=== PATIENT | male | born 1965 | race Caucasian/White ===

== ENCOUNTER 2016-12-08 03:52 | Observation (INO) | payer BC ==
[2016-12-08] VITALS (8 sets, daily range): BP systolic 90–134; BP diastolic 58–68
[~2016-12-08] VITALS: Ht 182.9 cm; Wt 136.7 kg
[~2016-12-08 03:52] MED LIST: ASPI81TA85 PO; CIPR500T89 PO; COLA100C3 PO; FLOM5CAP PO; LISI-538 PO; OMEP20CA3 PO; OMEP40CA2 PO; PERC2.5T PO; PERC7.5T3 PO; PRED10TA PO; VALS320T3 PO
[2016-12-08 04:36] LABS: BASO # 0.1 K/mm3 (0.0-0.2); EOS # 0.2 K/mm3 (0.0-0.50); EOS % 2.5 % (0.0-3.0); LARGE UNSTAINED CELL # 0.1 K/mm3 (0.0-0.4); LARGE UNSTAINED CELL % 1.4 % (0.0-4.0); LYMPH % 31.7 % (24.0-44.0); MEAN CORPUSCULAR HEMOGLOBIN 29.3 pg (27.0-33.0); MEAN CORPUSCULAR VOLUME 88.9 fl (80.0-96.0); MONO # 0.5 K/mm3 (0.0-0.8); MONO % 5.2 % (0.0-5.0); NEUTROPHILS # 5.3 K/mm3 (1.8-7.7); NEUTROPHILS % 58.2 % (36.0-66.0); PLATELET COUNT, AUTOMATED 178 k/mm3 (150-450); RED CELL DISTRIBUTION WIDTH 12.5 % (11.5-14.5); WHITE BLOOD COUNT 9.1 K/mm3 (4.0-10.0)
[2016-12-08 04:42] LABS: INR 0.95
[2016-12-08 05:00] LABS: ANION GAP 6 MEQ/L (8-16); BLOOD UREA NITROGEN 21 MG/DL (7-18); CALCIUM LEVEL 8.9 MG/DL (8.5-10.1); CARBON DIOXIDE LEVEL 27 MEQ/L (21-32); CHLORIDE LEVEL 106 MEQ/L (98-107); CREATININE FOR GFR 1.28 MG/DL (0.70-1.30); GLOMERULAR FILTRATION RATE > 60.0 (>60); GLUCOSE, FASTING 98 MG/DL (70-105); POTASSIUM SERUM 3.6 MEQ/L (3.5-5.1); SODIUM LEVEL 139 MEQ/L (136-145)
--- NOTE | 2016-12-08 06:40 | REPUSA ---
CLINICAL HISTORY: Syncope. TECHNIQUE: Multiple axial brain CT scan sections were obtained from base to vertex without contrast a dministration. COMMENTS: The study shows normal configuration of sella turcica. There are no intra or extra-axial collections. There is no mass effect or midline shift. There is no evidence of hematoma formation. No hydrocephal us is present. No abnormal calcifications are noted. No significant abnormalities are seen either in the posterior fossa or supratentorial compartment. The sinuses and mastoid air cells are patent. IMPRESSION: No evidence of acute intracranial pathology. Thank you for your kind referral of this patient.
[2016-12-08] MEDS: ACETAMINOPHEN TAB 650MG DOSE (2X325MG) PO PRN (08:32)
[2016-12-08] MEDS ORDERED: ISOVUE-370 76% 100ML VIAL (Q9967) As Ordered ONE (08:36)
--- NOTE | 2016-12-08 09:32 | REP ---
CT abdomen pelvis with IV contrast: No bowel contrast is utilized. Comparison is 05/30/2016. On the comparison study there was an 8.7 mm left ureteral calculus and left hydronephrosis. On the study today in the left ureteral calculus is no longer present and there is no left hydronephrosis. On the comparison study. There are was a nonobstructive 2 mm left renal calculus in the lower pole. This not identified on the current study and may no longer be present or could be obscured by the IV contrast enhancement. On the comparison study there were three 2 mm right renal calculi, nonobstructive. These are not identified on the current study and may be no longer be present or could be obscured by the IV contrast enhancement. There is no hydronephrosis on the right on the left. There are no bladder calculi. There is a periumbilical fat containing midline ventral hernia with the peritoneal defect measuring 1.5 cm and the hernia sac measuring 6 cm. There is no bowel within the hernia. This is unchanged from the prior study. There are bilateral fat containing inguinal hernias. These are unchanged. The visualized lung sylvester are unremarkable. Cardiac size is normal. The hepatic parenchyma is homogeneous but diffusely less dense than the spleen compatible with hepato steatosis. This is unchanged. The gallbladder, pancreas, spleen, adrenals, abdominal aorta, bowel and mesentery are unchanged and unremarkable. Pelvis: The bladder is unremarkable. There is no adenopathy or ascites. The pelvic bowel loops are unremarkable except for a few diverticuli in the sigmoid colon. There is no CT evidence of diverticulitis. Impression: No renal or ureteral calculi are identified. There is no hydronephrosis. The previous nonobstructive renal calculi were very small and could be obscured by the IV contrast enhancement or may no longer be present. The previous left ureteral calculus is no longer identified. Hepato steatosis. Fat-containing periumbilical hernia, unchanged. Bilateral fat containing inguinal hernias, unchanged. Occasional diverticula in the sigmoid colon without diverticulitis. Signed by Evelio Flood MD 12/08/2016 09:24 A
[2016-12-08] MEDS: SENOKOT S TAB PO SCH ×2 (10:50→21:16)
[2016-12-08] MEDS: OMEPRAZOLE 20 MG CAP PO SCH ×2 (10:50→21:16)
[2016-12-08] MEDS: ENOXAPARIN 40 MG/0.4 ML SYRINGE (J1650) SC SCH (10:50)
[2016-12-08] MEDS: TAMSULOSIN 0.4 MG CAP PO SCH (11:37)
--- NOTE | 2016-12-08 15:17 | HPEPDOC ---
General Date of Admission Dec 08, 2016 at 08:14 Other Providers Soheila Liang at the [facility] Chief Complaint The patient is a 51-year-old male admitted with a reason for visit of Syncope. History of Present Illness 51-year-old male with past medical history of hypertension, chronic lower back pain, GERD, history of nephrolithiasis status post ureteral stent 08/2014, and morbid obesity presents to the ER after he had a syncopal episode while trying to urinate at home. According to the patient, he has had 4 similar incidents over the last 10 years. Most recently, the patient states that he had a syncopal episode after straining to have a bowel movement back in May 2016. At this time, the patient states that he went to the bathroom at 4:00 in the morning, at which time he had difficulty initiating and maintaining a urinary stream. The patient states that he subsequently started to feel lightheaded, and dizzy and subsequently syncopized to the floor. He denies any associated shortness of breath, chest pain, palpitations, or any similar episodes associated with any exertion. The patient did present to the ER, and upon trying to use the urinal he once again syncopized, and was noted to be bradycardic with a heart rate in the 40s. A bladder scan was is currently done and the patient was found to have 310 mL of urine in the urinary bladder, for which he did have a straight catheter placed. At this time, the patient denies any fevers, chills, chest pain, shortness of breath, abdominal pain, or any nausea/vomiting/diarrhea. The patient also denies any flank pain, or any difficulty urinating up until the last 24 hours. The patient does state that he was recently on a cross-country flight from [place], and notes that he did not use the bathroom as frequently as he usually does. In the ER, a CT scan of the abdomen and pelvis was obtained, and this revealed no renal or ureteral calculi, or any evidence of hydronephrosis. The patient will be admitted to the hospitalist service and monitored on telemetry for syncope likely secondary to vasovagal episode. Home Medications Scheduled (Valsartan/Hydrochlorothia 320-25 mg) 1 Tab Tab 1 TAB PO DAILY (Reported) NORMALLY TAKES QAM, BUT TOOK AT NIGHT Aspirin (Aspir-81) 81 Mg Tab 81 MG PO DAILY (Reported) NORMALLY TAKES QAM, BUT TOOK AT NIGHT Omeprazole (Omeprazole) 20 Mg Cap 20 MG PO BID (Reported) Allergies Coded Allergies: No Known Allergies (Unverified , 08/28/14) Past Medical History Medical History As noted in HPI. Surgical History Urological stent placement in 08/2014 Family History Multiple family members with a history of coronary artery disease Social History * Smoker: former Smoker Alcohol: Denies Drugs: denies Review of Symptoms Other systems 10 point review of systems negative unless otherwise specified in HPI. Physical Examination General Exam: Positive: Alert, Cooperative, No Acute Distress ENT Exam: Positive: Atraumatic, Mucous membr. moist/pink Neck Exam: Negative: JVD Chest Exam: Positive: Clear to auscultation, Normal air movement Heart Exam: Positive: Normal S1, Normal S2, Rate Normal Telemetry: Positive: Sinus Abdomen Exam: Positive: Soft, Negative: Tenderness Extremity Exam: Negative: Tenderness Vital Signs Vital Signs Date Time Temp Pulse Resp B/P Pulse Ox O2 Delivery O2 Flow Rate FiO2 12/08/16 12:00 98.0 52 18 126/58 97 Room Air 12/08/16 09:40 2 Laboratory Data Labs 24H Laboratory Tests 2 12/08/16 04:15: Activated Partial Thromboplast Time 25.2L, Anion Gap 6L, White Blood Count 9.1, Red Blood Count 6.09, Hemoglobin 17.8, Hematocrit 54.1H, Mean Corpuscular Volume 88.9, Mean Corpuscular Hemoglobin 29.3, Mean Corpuscular Hemoglobin Concent 33.0, Red Cell Distribution Width 12.5, Platelet Count 178, Neutrophils (%) (Auto) 58.2, Lymphocytes (%) (Auto) 31.7, Monocytes (%) (Auto) 5.2H, Eosinophils (%) (Auto) 2.5, Basophils (%) (Auto) 1.0, Neutrophils # (Auto) 5.3, Lymphocytes # (Auto) 3.0, Monocytes # (Auto) 0.5, Eosinophils # (Auto) 0.2, Basophils # (Auto) 0.1, Blood Urea Nitrogen 21H, Creatinine 1.28, Sodium Level 139, Potassium Level 3.6, Chloride Level 106, Carbon Dioxide Level 27, Calcium Level 8.9, Total Creatine Kinase 229, Creatine Kinase MB 2.5, Creatine Kinase MB Relative Index 1.09, D-Dimer, Quantitative 422.2, Glomerular Filtration Rate > 60.0, Large Unclassified Cells # 0.1, Large Unclassified Cells % 1.4, Prothromb Time International Ratio 0.95, Prothrombin Time 12.8, Thyroid Stimulating Hormone (TSH) 0.935, Troponin I < 0.02 12/08/16 04:32: Bedside Glucose (Misc Panel) 99 12/08/16 05:23: Urine Amorphous Sediment SMALLH, Urine Appearance HAZY, Urine Color YELLOW, Urine pH 7.0, Urine Specific [place]rop 1.014, Urine Protein NEGATIVE, Urine Glucose (UA) NEGATIVE, Urine Ketones NEGATIVE, Urine Urobilinogen 0.2, Urine Bilirubin NEGATIVE, Urine Leukocyte Esterase NEGATIVE, Urine Bacteria (Auto) NEGATIVE, Urine Blood NEGATIVE, Urine Calcium Carbonate Cryst(Auto) , Urine Calcium Oxalate Cryst (Auto) , Urine Calcium Phosphate Yasmin (Auto) , Urine Cellular Casts , Urine Cystine Crystals , Urine Granular Casts (Auto) , Urine Hyaline Casts (Auto) 0, Urine Leucine Crystals , Urine Mucus (Auto) SMALL, Urine Nitrite NEGATIVE, Urine Oval Fat Bodies (Auto) , Urine RBC (Auto) 1, Urine Renal Epithelial Cells , Urine Sperm (Auto) , Urine Squamous Epithelial Cells 0, Urine Transitional Epithelial Cells , Urine Trichomonas (Auto) , Urine Triple Phosphate Cryst (Auto) , Urine Tyrosine Crystals , Urine Uric Acid Crystals (Auto) , Urine WBC (Auto) 1, Urine Waxy Casts (Auto) , Urine Yeast- Like Cells (Auto) 12/08/16 12:35: Troponin I < 0.02 CBC/BMP Laboratory Tests 12/08/16 04:15 Calcium Level 8.9, Total Creatine Kinase 229, Red Blood Count 6.09, Mean Corpuscular Volume 88.9, Mean Corpuscular Hemoglobin 29.3, Mean Corpuscular Hemoglobin Concent 33.0, Red Cell Distribution Width 12.5, Neutrophils (%) (Auto ) 58.2, Lymphocytes (%) (Auto) 31.7, Monocytes (%) (Auto) 5.2 H, Eosinophils (% ) (Auto) 2.5, Basophils (%) (Auto) 1.0, Neutrophils # (Auto) 5.3, Lymphocytes # (Auto) 3.0, Monocytes # (Auto) 0.5, Eosinophils # (Auto) 0.2, Basophils # (Auto ) 0.1 Microbiology Microbiology 12/08/16 Urine Culture, Received Pending Plan / VTE VTE Prophylaxis Ordered?: Yes Plan Plan Syncope likely secondary to vasovagal episode We will admit to PCU CT scan of the head negative Patient had vasovagal episode as he was straining to urinate, we will start the patient on Flomax CT scan of the abdomen/pelvis negative for any kind of nephrolithiasis Status post straight catheterization in the ER, and drainage of 310 mL of urine We will continue to monitor the patient's urinary output, and bladder scan the patient if there is a concern for retention EKG noted to be in normal sinus rhythm, initial troponin negative, we will cycle these Continue to monitor on telemetry Hypertension, stable Continue on valsartan, hydrochlorothiazide GERD Continue PPI DVT prophylaxis-Lovenox subcutaneous CHERELLE MARIE MD Dec 08, 2016 15:17
--- NOTE | 2016-12-08 21:44 | ECGEPIP ---
Stationary ECG Study [facility] - ED Test Date: 2016-12-08 Pat Name: WILLY WILKES Department: Room: - Gender: M [employer]: neli : 1965 Requested By: KARLOS JACOBO Order Number: [id number] Reading MD: Minerva La Measurements Intervals [place] Rate: 68 P: 33 UT: 173 QRS: 64 QRSD: 107 T: 38 QT: 422 QTc: 451 Interpretive Statements SINUS RHYTHM NSTTW ABNORMALITY SIMILAR 05/30/16 Electronically Signed On 12-08-2016 21:43:46 EDT by Minerva La
--- NOTE | 2016-12-08 21:47 | ECGEPIP ---
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
[2016-12-08] MEDS: hydroCHLOROthiazide 25 MG TAB PO SCH (22:00)
[2016-12-08] MEDS: VALSARTAN 80 MG TAB (DIOVAN) PO SCH (22:00)
[2016-12-09] MEDS ORDERED: SLF 3 ML SYR IV PRN (03:30)
[2016-12-09 05:27] VITALS: BP 118/64
[2016-12-09 05:54] LABS: MEAN CORPUSCULAR HEMOGLOBIN 29.3 pg (27.0-33.0); MEAN CORPUSCULAR HGB CONC 32.8 g/dl (32.0-36.5); MEAN CORPUSCULAR VOLUME 89.2 fl (80.0-96.0); RED CELL DISTRIBUTION WIDTH 12.5 % (11.5-14.5); WHITE BLOOD COUNT 8.4 K/mm3 (4.0-10.0)
[2016-12-09] MEDS: SLF 3 ML SYR IV SCH ×3 (06:00→21:14)
[2016-12-09 06:10] LABS: CALCIUM LEVEL 8.4 MG/DL (8.5-10.1); CREATININE FOR GFR 1.39 MG/DL (0.70-1.30); GLOMERULAR FILTRATION RATE 57.8 (>60); POTASSIUM SERUM 3.7 MEQ/L (3.5-5.1)
[2016-12-09 08:00] VITALS: BP 135/85
[2016-12-09] MEDS: ENOXAPARIN 40 MG/0.4 ML SYRINGE (J1650) SC SCH (08:40)
[2016-12-09] MEDS: OMEPRAZOLE 20 MG CAP PO SCH ×2 (08:40→21:14)
[2016-12-09] MEDS: TAMSULOSIN 0.4 MG CAP PO SCH (08:40)
[2016-12-09] MEDS: SENOKOT S TAB PO SCH ×2 (08:41→21:13)
[2016-12-09 11:05] VITALS: BP 138/91
--- NOTE | 2016-12-09 12:30 | IPNPDOC ---
Subjective Date Seen The patient was seen on 12/09/16. Subjective Chief Complaint/HPI The patient is a 51-year-old male admitted with a reason for visit of Syncope. General: Denies: Chills, Night Sweats Constitutional: Denies: Chills, Fever Eyes: Denies: Pain, Vision change ENT: Denies: Ear Pain, Head Aches Skin: Denies: Lesions, Rash Pulmonary: Denies: Cough, Dyspnea Cardiovascular: Denies: Chest Pain, Palpitations Gastrointestinal: Denies: Nausea, Vomiting Genitourinary: Denies: Dysuria, Frequency Hematologic: Denies: Bleeding Excessively, Bruising Objective Physical Examination General Exam: Positive: Alert, Cooperative, No Acute Distress ENT Exam: Positive: Atraumatic, Mucous membr. moist/pink Neck Exam: Negative: JVD Chest Exam: Positive: Clear to auscultation, Normal air movement Heart Exam: Positive: Normal S1, Normal S2, Rate Normal Telemetry: Positive: Sinus Abdomen Exam: Positive: Soft, Negative: Tenderness Extremity Exam: Negative: Tenderness Assessment /Plan Plan/VTE VTE Prophylaxis Ordered?: Yes Plan Syncope likely secondary to vasovagal episode CT scan of the head negative Patient had vasovagal episode as he was straining to urinate, we will start the patient on Flomax CT scan of the abdomen/pelvis negative for any kind of nephrolithiasis UA negative for any infectious etiology Follow up EKG noted to be in normal sinus rhythm, troponin negative x 3 Given the fact that the patient has had 4+ occurrences of vasovagal syncope ( most recently admitted here 6 months ago) such as the one he is currently admitted for, and the significant pauses noted on telemetry during his syncopal event in the ER, I do wonder whether he would benefit from a pacemaker. Cardiology consulted for further delineation of possible pacemaker indication Continue to monitor on telemetry Hypertension, stable We will hold valsartan, hydrochlorothiazide this a.m. as the patient was slightly hypotensive GERD Continue PPI DVT prophylaxis-Lovenox subcutaneous VS, I&O, 24H, Fishbone Vital Signs/I&O Vital Signs Date Time Temp Pulse Resp B/P Pulse Ox O2 Delivery O2 Flow Rate FiO2 12/09/16 11:05 99.0 78 18 138/91 93 Room Air 12/08/16 09:40 2 I&O- Last 24 Hours up to 6 AM 12/09/16 05:59 Intake Total 2340 ml Output Total 1075 ml Balance 1265 ml Laboratory Data 24H LABS Laboratory Tests 2 12/08/16 12:35: Troponin I < 0.02 12/08/16 15:02: Bedside Glucose (Misc Panel) 105 12/08/16 23:56: Troponin I < 0.02 12/09/16 05:36: Anion Gap 6L, Blood Urea Nitrogen 23H, Creatinine 1.39H, Sodium Level 142, Potassium Level 3.7, Chloride Level 106, Carbon Dioxide Level 30, Calcium Level 8.4L, Glomerular Filtration Rate 57.8L 12/09/16 08:56: Troponin I < 0.02 CBC/BMP Laboratory Tests 12/09/16 05:36 Calcium Level 8.4 L, Red Blood Count 5.54, Mean Corpuscular Volume 89.2, Mean Corpuscular Hemoglobin 29.3, Mean Corpuscular Hemoglobin Concent 32.8, Red Cell Distribution Width 12.5 Microbiology Microbiology 12/08/16 Urine Culture, Received Pending CHERELLE MARIE MD Dec 09, 2016 12:29
[2016-12-09 15:59] VITALS: BP 134/81
--- NOTE | 2016-12-09 19:20 | CR ---
DATE OF CONSULTATION: 12/09/2016 REFERRING PHYSICIAN: Dr. Darden INDICATIONS: Syncope. HISTORY OF PRESENT ILLNESS: Mr. Reno is previously unknown to me, but he is followed by my colleague, Dr. Vila, in [facility] office in [place]. He has a longstanding history of hypertension, obesity and dyslipidemia. He came to the hospital after he suffered a syncopal event at home. He was standing trying to urinate, and all of a sudden became dizzy, lightheaded and passed out. He came to emergency room and was found to have urinary obstruction with enlarged bladder and as they tried to pass a Paz catheter, he had another syncopal event, this time laying in bed. He had documented bradycardia which lasted about a minute, but there was one episode of asystole that exceeded 16 seconds. He came back to it without any specific intervention. He was then brought for further evaluation. Since he has been in telemetry, he has not had any additional episodes. The patient tells me that he has had similar episodes for probably 20 or 25 years. They always occur when he is urinating or having bowel movements. Initially, the frequency was very low, maybe once every few years, but as of recently, the frequency is markedly increasing. He is very concerned that he is going to . He does not recall any incident that would occur without urination or having a bowel movement. The patient does not have any established coronary artery disease. He denies any chest pain or significant shortness of breath. He actually just returned from a trip to [place] where he was extremely active and had no trouble. PAST MEDICAL HISTORY: 1. Hypertension, longstanding. 2. Dyslipidemia. 3. Relatively recent history of tobacco use. 4. Obesity. 5. Nephrolithiasis. 6. Gastroesophageal reflux disease (GERD). OUTPATIENT MEDICATIONS: - aspirin 81 mg a day - omeprazole 20 mg twice a day - valsartan/HCTZ 320/25 once a day. ALLERGIES: No known medication allergies. SURGICAL HISTORY: Positive for kidney stent placement and removal. FAMILY HISTORY: His father had bypass surgery. His mother has Parkinson's disease. SOCIAL HISTORY: The patient rarely drinks alcohol. He used to drink a lot of power drinks, but as of recently, has not been using any. He lives with three children. 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 REVIEW OF SYSTEMS: There are numerous history of syncope as per history of the present illness, but no history of stroke. No recent fever, chills, nausea, vomiting. No abdominal pain. No chest discomfort. No sensation of palpitations. No shortness of breath. No peripheral edema. He has no bleeding problems. PHYSICAL EXAMINATION: Middle-age man who appears approximately his age, comfortable, in no distress. Blood pressure 134/81, heart rate is from 50s to 80s. Afebrile. Saturation 95% on room air. Weight is documented at 136 kg. Jugular venous pressure (JVP) is not up. Lungs are clear to auscultation. I do not appreciate any wheezing, crackles or rhonchi. Heart exam reveals regular rhythm. No gallop, rub or murmur is appreciated. Abdomen is obese but soft. No tenderness. No hepatosplenomegaly. Extremities have no edema and pulses are good quality. LABORATORY DATA: Basic metabolic panel: Potassium 3.7, BUN 23, creatinine 1.4, GFR is 58, glucose 123. Four sets of cardiac enzymes have been negative. TSH is 1. INR is 0.9 and CBC is normal. He had a head CT that was unremarkable, and he had a CT of the abdomen and pelvis that revealed no new ureteral or renal calculi. No hydronephrosis. Hepatosteatosis. There is also a periumbilical hernia. ASSESSMENT AND PLAN: Mr. Reno is a 51-year-old man who has had longstanding history of syncopal events. They are always triggered by defecation or urination. He never suffered any serious injury, but the frequency of episodes is markedly increasing as of lately. He is extremely fearful because he feels that it is becoming a very significant problem, and he is fearing for his life. None of the episodes were ever documented on telemetry, but this time he had an episode in emergency room with Paz catheter placement and even though he did not find the experience particularly painful, he did have profound slowing of the heart rate with several episodes of asystole, the longest a little over 16 seconds. I had a discussion with him about management. I explained to him that vasovagal syncope has two components; one is bradycardia and the second is vasodilatation. The pacemaker placement, which is the only intervention I can think of that potentially can improve his situation will correct the bradycardic component but will not have any direct effect on the vasodilatory component. Consequently, it may not completely abolish the syncopal events, but because he is so profoundly bradycardic and the pause is so long, I think it is reasonable to proceed with pacemaker placement. I contacted his vacation sales advisor, Dr. Vila, who is in agreement with the plan. I also spoke with Dr. Cano, who is agreement as well. Tentatively, the procedure will occur tomorrow. I spoke with the patient, and he decided he wants to proceed.
[2016-12-09 21:00] VITALS: BP 154/91
[2016-12-09] MEDS: hydroCHLOROthiazide 25 MG TAB PO SCH (21:14)
[2016-12-09] MEDS: VALSARTAN 80 MG TAB (DIOVAN) PO SCH (21:14)
[2016-12-09 23:41] VITALS: BP 141/87
[2016-12-10] VITALS (14 sets, daily range): BP systolic 126–158; BP diastolic 68–110
[2016-12-10] MEDS: SLF 3 ML SYR IV SCH ×3 (05:04→21:25)
[2016-12-10 05:54] LABS: MEAN CORPUSCULAR HEMOGLOBIN 30.1 pg (27.0-33.0); MEAN CORPUSCULAR HGB CONC 33.4 g/dl (32.0-36.5); MEAN CORPUSCULAR VOLUME 90.1 fl (80.0-96.0); RED CELL DISTRIBUTION WIDTH 12.6 % (11.5-14.5)
[2016-12-10] MEDS ORDERED: LR 1,000 ML IV SCH ×2 (06:00→17:15)
[2016-12-10 06:10] LABS: ANION GAP 6 MEQ/L (8-16); BLOOD UREA NITROGEN 21 MG/DL (7-18); CARBON DIOXIDE LEVEL 29 MEQ/L (21-32); CHLORIDE LEVEL 107 MEQ/L (98-107); CREATININE FOR GFR 1.24 MG/DL (0.70-1.30); GLOMERULAR FILTRATION RATE > 60.0 (>60); GLUCOSE, FASTING 116 MG/DL (70-105); POTASSIUM SERUM 3.6 MEQ/L (3.5-5.1); SODIUM LEVEL 142 MEQ/L (136-145)
[2016-12-10] MEDS: TAMSULOSIN 0.4 MG CAP PO SCH (08:53)
[2016-12-10] MEDS: OMEPRAZOLE 20 MG CAP PO SCH ×2 (08:53→21:24)
[2016-12-10] MEDS: SENOKOT S TAB PO SCH ×2 (08:53→21:24)
--- NOTE | 2016-12-10 11:06 | IPNPDOC ---
Subjective Date Seen The patient was seen on 12/10/16. Subjective Chief Complaint/HPI The patient is a 51-year-old male admitted with a reason for visit of Syncope. General: Denies: Chills, Night Sweats Constitutional: Denies: Chills, Fever Eyes: Denies: Pain, Vision change ENT: Denies: Ear Pain, Head Aches Skin: Denies: Lesions, Rash Pulmonary: Denies: Cough, Dyspnea Cardiovascular: Denies: Chest Pain, Palpitations Gastrointestinal: Denies: Nausea, Vomiting Genitourinary: Denies: Dysuria, Frequency Hematologic: Denies: Bleeding Excessively, Bruising Musculoskeletal: Denies: Back Pain, Neck Pain Objective Physical Examination General Exam: Positive: Alert, Cooperative, No Acute Distress ENT Exam: Positive: Atraumatic, Mucous membr. moist/pink Neck Exam: Negative: JVD Chest Exam: Positive: Clear to auscultation, Normal air movement Heart Exam: Positive: Normal S1, Normal S2, Rate Normal Telemetry: Positive: Sinus Abdomen Exam: Positive: Soft, Negative: Tenderness Extremity Exam: Negative: Tenderness Assessment /Plan Plan/VTE VTE Prophylaxis Ordered?: Yes Plan Syncope likely secondary to vasovagal episode CT scan of the head negative Patient had vasovagal episode as he was straining to urinate, patient already started on Flomax CT scan of the abdomen/pelvis negative for any kind of nephrolithiasis UA negative for any infectious etiology Follow up EKG noted to be in normal sinus rhythm, troponin negative x 3 Given the fact that the patient has had 4+ occurrences of vasovagal syncope isolated during urination/defacation (most recently admitted here 6 months ago) such as the one he is currently admitted for, and the significant pauses noted on telemetry during his syncopal event in the ER, the patient may benefit from insertion of a pacemaker to control the bradycardic aspect of his vasovagal symptoms. However, it was explained to the patient that the pacemaker would not affect the hypotensive aspect of his vasovagal episodes. Cardiology input appreciated, patient scheduled for Pacemaker insertion today Continue to monitor on telemetry Hypertension, stable cont valsartan, hydrochlorothiazide GERD Continue PPI DVT prophylaxis-Lovenox subcutaneous Disposition: will follow up with Cardiology recommendations on how long to monitor the patient following pacemaker insertion. VS, I&O, 24H, Fishbone Vital Signs/I&O Vital Signs Date Time Temp Pulse Resp B/P Pulse Ox O2 Delivery O2 Flow Rate FiO2 12/10/16 07:55 Room Air 12/10/16 07:24 98.4 72 18 128/78 97 12/08/16 09:40 2 I&O- Last 24 Hours up to 6 AM 12/10/16 06:00 Intake Total 1200 ml Output Total 1275 ml Balance -75 ml Laboratory Data 24H LABS Laboratory Tests 2 12/10/16 05:24: Anion Gap 6L, Blood Urea Nitrogen 21H, Creatinine 1.24, Sodium Level 142, Potassium Level 3.6, Chloride Level 107, Carbon Dioxide Level 29, Calcium Level 9.0, Glomerular Filtration Rate > 60.0 CBC/BMP Laboratory Tests 12/10/16 05:24 Calcium Level 9.0, Red Blood Count 5.48, Mean Corpuscular Volume 90.1, Mean Corpuscular Hemoglobin 30.1, Mean Corpuscular Hemoglobin Concent 33.4, Red Cell Distribution Width 12.6 Microbiology Microbiology 12/08/16 Urine Culture - Final, Complete CHERELLE MARIE MD Dec 10, 2016 11:06
[2016-12-10] MEDS ORDERED: ceFAZolin 1GM INJ (J0690) As Ordered ONE (13:38)
[2016-12-10] MEDS ORDERED: MIDAZOLAM INJ 2 MG/2 ML VIAL (J2250) As Ordered ONE (14:08)
[2016-12-10] MEDS ORDERED: fentaNYL 100 MCG/2 ML INJECTION (J3010) As Ordered ONE (14:10)
[2016-12-10] MEDS: LIDOCAINE 1% SDV INJ 30 ML VIAL As Ordered ONE ×2 (14:10→14:40)
[2016-12-10] MEDS ORDERED: LIDOCAINE 2% INJ 100 MG/5 ML SDV (FOR ANES.) As Ordered ONE (14:11)
[2016-12-10] MEDS ORDERED: PROPOFOL 200 MG/20 ML VIAL As Ordered ONE ×3 (14:12→16:06)
[2016-12-10] MEDS ORDERED: ONDANSETRON 4MG/2ML VIAL (J2405) As Ordered ONE (15:10)
--- NOTE | 2016-12-10 17:04 | REP ---
Chest one-view HISTORY: Post pacemaker Comparison: 07/08/2016 There is poor inspiratory effort. The lungs are clear. The heart is normal in size. The pulmonary vasculature is normal in appearance. The patient is status post cardiac pacemaker placement. There is no pneumothorax. Impression: No acute disease. Signed by August Casey MD 12/10/2016 04:56 P
--- NOTE | 2016-12-10 17:41 | RO ---
DATE OF PROCEDURE: 12/10/2016 PREOPERATIVE DIAGNOSES: 1. Recurrent syncope. 2. Sinus node dysfunction - paroxysmal sinus arrest (vagally mediated). POSTOPERATIVE DIAGNOSES: 1. Recurrent syncope. 2. Sinus node dysfunction - paroxysmal sinus arrest (vagally mediated). PROCEDURE: Implantation of dual-chamber pacemaker. SURGEON/IMPLANTING MUD GRINDER: Dr. Rolando Cano ANESTHESIOLOGIST: Dr. Brand ANESTHESIA: Monitored local anesthesia. . 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 Pino Vila, [employer], [place], [place]. He has had a history of obesity, chronic hypertension, hypercholesterolemia and former smoking. Also has a history of recurrent syncope. He was cleared by the [facility] for kidney stone removal September 2016. December 08, 2016, he presented to our emergency room with recurrent syncopal spells while trying to urinate. In the emergency room while Paz catheter was being inserted, the patient had a recurrent syncopal spell with an asystolic pause - sinus arrest that exceeded 16 seconds. In light of his history and this marked sinus arrest, he was referred to our pacer service for permanent pacemaker implant. He is an obese, barrel-chested, middle-aged male who lay comfortably flat. Heart rate 76 beats per minute and regular, blood pressure 130/80 supine, respiratory rate 16 per minute. Body mass index (BMI) 45. No pallor or icterus. Normal oral moisture. Trachea midline. Neck veins were not elevated. Increased anteroposterior chest diameter with fairly good air entry over both lung sylvester. Slight prolongation of expiration but no audible wheeze. Apical impulse not palpable. Heart sounds showed a normal S1 and S2 with S4 gallop but no murmur. Normal carotid upstrokes and volume. Normal peripheral pulses. No dependent edema. Abdomen was obese and soft. EKG December 08, 2016 showed sinus rhythm at 63 beats per minute (BPM). Left atrial conduction disturbance. Somewhat low voltages with slow precordial R-wave progression and persistent S waves in V5 and V6 in keeping with his body habitus/pulmonary disease. Complete blood count was normal. Electrolytes were normal. BUN 23, creatinine 1.4, random glucose 123. Four sets of cardiac enzymes were negative. TSH was normal. DESCRIPTION OF PROCEDURE: In the fasting state, following informed consent and Ancef 2 grams IV premedication, the patient was taken to the operating theater. Numerous skin electrodes were applied to facilitate continuous electrocardiographic monitoring. The left subclavian region was prepped and draped in the usual fashion. The skin was infiltrated with 1% Xylocaine and the left axillary vein was catheterized using a micropuncture technique. A 5-cm linear incision was then made several centimeters below and parallel to the left clavicle. Dissection was carried down to the level of the pectoralis fascia and a pocket was fashioned below the level of the incision line. Two bipolar screw-in active fixation MRI compatible pacing leads were then positioned to the high right ventricular outflow tract and the high anterior right atrium under fluoroscopic and electrocardiographic control. Comment should be made that there was considerable difficulty finding an adequate pacing site for his atrial lead, though the interatrial signal was excellent. Pacing threshold at seven separate sites exceeded 4 volts at 0.5 milliseconds. Our final position after 1 hour of manipulating his atrial lead was acceptable. The ventricular lead ([employer], model number [id number], serial number [id number]) measurements were: Stimulation threshold 0.4V/0.4 ms/impedance 744 ohms. The R wave measured 10.0 mV. The atrial lead finally ([employer], model number [id number], serial number [id number]) measurements finally were: 2.5 V/0.4 ms/impedance 630 ohms. The P wave measured 5.7 mV. These leads were secured in position with sleeves sutured at the insertion site. They were then connected to a permanent dual-chamber pulse generator ([employer] - Assurity MRI compatible, model number [id number], serial number [id number]) and appropriate DDD pacing was documented - actual sensing and inhibition both atrial and ventricular leads. His device was then placed in the pocket and secured in position with a suture through the upper right-hand corner of the epoxy header. Subcutaneous tissues were approximated using a running chromic suture and the skin was closed using liv. A dry dressing was applied, and the patient was returned to the recovery room in good condition. Estimated blood loss: Less than 50 mL. No apparent complications. Portable upright chest x-ray in the recovery room showed no pneumothorax and good lead position. His pacemaker has been programmed with low rate of 50 but a drop rate sense that will automatically pace his heart at an accelerated rate should he suffer recurrent vasovagal episode. With this device, the response rate is 20 beats per minute plus the average heart rate he had the preceding 5 minutes. This has a slow recovery program that begins 3 minutes following the trigger of his rate response back to allow spontaneous activity. We intend to monitor him overnight and obtain a PA and left lateral chest x-ray in the morning along with followup EKG. We anticipate he will be able to be discharged home. While he is in the hospital, he will receive an additional three doses of Ancef 1 gram IV every 8 hours. MTDD
[2016-12-10] MEDS: ACETAMINOPHEN TAB 650MG DOSE (2X325MG) PO PRN (18:28)
--- NOTE | 2016-12-10 21:07 | ECGEPIP ---
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
[2016-12-10] MEDS: VALSARTAN 80 MG TAB (DIOVAN) PO SCH (21:24)
[2016-12-10] MEDS: hydroCHLOROthiazide 25 MG TAB PO SCH (21:24)
[2016-12-10] MEDS: ceFAZolin SOD 1 GM in D5W MINI-BAG PLUS 50 ML IV SCH (21:25)
[2016-12-11] MEDS: ACETAMINOPHEN TAB 650MG DOSE (2X325MG) PO PRN ×4 (00:03→14:11)
[2016-12-11 04:00] VITALS: BP 138/77
[2016-12-11 05:07] LABS: MEAN CORPUSCULAR HEMOGLOBIN 29.8 pg (27.0-33.0); MEAN CORPUSCULAR HGB CONC 32.6 g/dl (32.0-36.5); MEAN CORPUSCULAR VOLUME 91.2 fl (80.0-96.0); RED CELL DISTRIBUTION WIDTH 12.5 % (11.5-14.5)
[2016-12-11] MEDS: ceFAZolin SOD 1 GM in D5W MINI-BAG PLUS 50 ML IV SCH ×2 (05:07→14:06)
[2016-12-11] MEDS: SLF 3 ML SYR IV SCH ×2 (05:08→14:07)
[2016-12-11 05:21] LABS: ANION GAP 6 MEQ/L (8-16); BLOOD UREA NITROGEN 19 MG/DL (7-18); CALCIUM LEVEL 8.4 MG/DL (8.5-10.1); CARBON DIOXIDE LEVEL 29 MEQ/L (21-32); CHLORIDE LEVEL 105 MEQ/L (98-107); CREATININE FOR GFR 1.31 MG/DL (0.70-1.30); GLOMERULAR FILTRATION RATE > 60.0 (>60); GLUCOSE, FASTING 130 MG/DL (70-105); POTASSIUM SERUM 3.6 MEQ/L (3.5-5.1); SODIUM LEVEL 140 MEQ/L (136-145)
[2016-12-11 08:00] VITALS: BP 135/87
[2016-12-11] MEDS: TAMSULOSIN 0.4 MG CAP PO SCH (08:21)
[2016-12-11] MEDS: SENOKOT S TAB PO SCH (08:21)
[2016-12-11] MEDS: OMEPRAZOLE 20 MG CAP PO SCH (08:21)
--- NOTE | 2016-12-11 09:16 | REP ---
CHEST, PA AND LATERAL: 12/11/2016. Comparison portable chest 12/10/2016, PA and lateral 07/08/2016. Clinical history: Status post pacemaker. Findings: Skin liv in the left upper chest with the dual lead pacer. Leads are in the right atrium and right ventricle. There is cardiomegaly with left atrial and ventricular enlargement. Slight elevation right diaphragm noted. There is lateral pleural thickening, left greater than right. No effusion. No edema. No pneumothorax. Impression: 1. Status post dual lead pacer placement on the left without effusion or definite pneumothorax. 2. Cardiomegaly with left atrial and left ventricular enlargement. No edema. Signed by Baldemar Segovia MD 12/11/2016 08:19 P
--- NOTE | 2016-12-11 11:36 | IPN ---
DATE OF SERVICE: 12/11/2016 Mr. Reno had a pacemaker placed by Dr. Cano yesterday. He tolerated the procedure well and there were no complications. He has no complaints this morning. He is alert and oriented and appropriate. Vital signs reveal blood pressure 135/87, heart rate is 60s and 70s, sinus rhythm. He has no pacing. He is afebrile. Saturation 96% on room air. Weight is 136 kg. His JVP is not elevated. I do not appreciate any gallop, rub or murmur. Lungs are clear. No edema. I removed the dressing and the wound is intact. Will cover it with sterile dressing before discharge. Chest x-ray reveals appropriate position of the leads and no pneumothorax. Pacemaker interrogation reveals a good parameters with sensing in the atrium over 5 mV, in ventricular mild 9 mV and threshold in atrium is 1 volt at 0.8 milliseconds and in ventricle is 0.5 volts in 0.4 milliseconds ASSESSMENT/PLAN: Mr. Reno presented with severe vasovagal syncope with asystole over 16 seconds. He underwent placement of dual-chamber pacemaker yesterday. The procedure was uneventful and the parameters are appropriate. There is no evidence for pneumothorax. He can be discharged home after he received his last dose of IV antibiotic. Once he is seen by Dr. Cano and about 7-10 days for wound check, he will be followed in our [place] office. His regular plate washer, Dr. Vila. CC: , [facility], [facility]
[2016-12-11 12:00] VITALS: BP 145/96
[2016-12-11] MEDS ORDERED: FLOM5CAP PO (13:49)
--- NOTE | 2016-12-11 14:25 | DS.PDOC ---
Discharge Summary General Date of Admission Dec 08, 2016 at 08:14 Date of Discharge 12/11/16 Specialist/Consultants Involve Dr. Reyes and Dr. Cano of Cardiology Discharge Summary PROCEDURES PERFORMED DURING STAY: Implantation of dual-chamber pacemaker ADMITTING DIAGNOSES: 1. . Recurrent syncope 2. . Sinus node dysfunction-paroxysmal sinus arrest DISCHARGE DIAGNOSES: 1. . Recurrent syncope 2. . Sinus node dysfunction-paroxysmal sinus arrest COMPLICATIONS/CHIEF COMPLAINT: Syncope. HISTORY OF PRESENT ILLNESS: . 51-year-old male with past medical history of hypertension, chronic lower back pain, GERD, history of nephrolithiasis status post ureteral stent 08/2014, and morbid obesity presents to the ER after he had a syncopal episode while trying to urinate at home. According to the patient, he has had 4 similar incidents over the last 10 years. Most recently, the patient states that he had a syncopal episode after straining to have a bowel movement back in May 2016. At this time, the patient states that he went to the bathroom at 4:00 in the morning, at which time he had difficulty initiating and maintaining a urinary stream. The patient states that he subsequently started to feel lightheaded, and dizzy and subsequently syncopized to the floor. He denies any associated shortness of breath, chest pain, palpitations, or any similar episodes associated with any exertion. The patient did present to the ER, and upon placement of a guadalupe catheter the patient was noted to be bradycardic with a heart rate in the 40s, with a subsequent paroxysmal sinus arrest that exceeded 16 seconds. The patient subsequently recovered without any acute complaints. In the ER, a CT scan of the abdomen and pelvis was obtained, and this revealed no renal or ureteral calculi, or any evidence of hydronephrosis. The patient was admitted to the hospitalist service and monitored on telemetry for syncope likely secondary to vasovagal episode. HOSPITAL COURSE: . During the patient's hospitalization, he was evaluated by Dr. Reyes and Dr. Cano of cardiology. Given the fact that the patient has had multiple events of vasovagal syncope during urinary straining/defecation, with the first event here on this admission which was monitored on telemetry in the ER and revealed prolonged bradycardia of 1 minute, and a sinus arrest that exceeded 16 seconds, it was felt that the patient would benefit from a pacemaker. The patient did have the pacemaker placed on 12/10/[address] Cano. A follow-up chest x-ray and EKG revealed normal findings. At this time, the patient states that he is feeling well, and he has had no further events while being hospitalized here. The patient has been advised to follow-up with Dr. Cano of purchasing department clerk for wound check of the pacemaker site in 7-10 days. He is then to follow-up with his purchasing department clerk Dr. Vila for further evaluation and management. DISCHARGE MEDICATIONS: Please see below. ALLERGIES: Please see below. PHYSICAL EXAMINATION ON DISCHARGE: VITAL SIGNS: Please see below. General Exam: Positive: Alert, Cooperative, No Acute Distress ENT Exam: Positive: Atraumatic, Mucous membr. moist/pink Neck Exam: Negative: JVD Chest Exam: Positive: Clear to auscultation, Normal air movement Heart Exam: Positive: Normal S1, Normal S2, Rate Normal Telemetry: Positive: Sinus Abdomen Exam: Positive: Soft, Negative: Tenderness Extremity Exam: Negative: Tenderness LABORATORY DATA: Please see below. IMAGING: CT abdomen pelvis with IV contrast: No bowel contrast is utilized. Comparison is 05/30/2016. On the comparison study there was an 8.7 mm left ureteral calculus and left hydronephrosis. On the study today in the left ureteral calculus is no longer present and there is no left hydronephrosis. On the comparison study. There are was a nonobstructive 2 mm left renal calculus in the lower pole. This not identified on the current study and may no longer be present or could be obscured by the IV contrast enhancement. On the comparison study there were three 2 mm right renal calculi, nonobstructive. These are not identified on the current study and may be no longer be present or could be obscured by the IV contrast enhancement. There is no hydronephrosis on the right on the left. There are no bladder calculi. There is a periumbilical fat containing midline ventral hernia with the peritoneal defect measuring 1.5 cm and the hernia sac measuring 6 cm. There is no bowel within the hernia. This is unchanged from the prior study. There are bilateral fat containing inguinal hernias. These are unchanged. The visualized lung sylvester are unremarkable. Cardiac size is normal. The hepatic parenchyma is homogeneous but diffusely less dense than the spleen compatible with hepato steatosis. This is unchanged. The gallbladder, pancreas, spleen, adrenals, abdominal aorta, bowel and mesentery are unchanged and unremarkable. Pelvis: The bladder is unremarkable. There is no adenopathy or ascites. The pelvic bowel loops are unremarkable except for a few diverticuli in the sigmoid colon. There is no CT evidence of diverticulitis. Impression: No renal or ureteral calculi are identified. There is no hydronephrosis. The previous nonobstructive renal calculi were very small and could be obscured by the IV contrast enhancement or may no longer be present. The previous left ureteral calculus is no longer identified. Hepato steatosis. Fat-containing periumbilical hernia, unchanged. Bilateral fat containing inguinal hernias, unchanged. Occasional diverticula in the sigmoid colon without diverticulitis. PROGNOSIS: Medically stable at this time ACTIVITY: As tolerated. DIET: . 2 g low sodium diet DISCHARGE PLAN: DISPOSITION: . Home DISCHARGE INSTRUCTIONS: 1. . Follow-up with primary care physician and cardiology within 1-2 weeks. DISCHARGE CONDITION: Stable. TIME SPENT ON DISCHARGE: Greater than 30 minutes. Vital Signs/I&Os Vital Signs Date Time Temp Pulse Resp B/P Pulse Ox O2 Delivery O2 Flow Rate FiO2 12/11/16 08:00 97.3 65 18 135/87 96 Room Air 12/08/16 09:40 2 I&O- Last 24 Hours up to 6 AM 12/11/16 06:00 Intake Total 1775 ml Output Total 1600 ml Balance 175 ml Laboratory Data Labs 24H Laboratory Tests 2 12/11/16 04:42: Anion Gap 6L, Blood Urea Nitrogen 19H, Creatinine 1.31H, Sodium Level 140, Potassium Level 3.6, Chloride Level 105, Carbon Dioxide Level 29, Calcium Level 8.4L, Glomerular Filtration Rate > 60.0 CBC/BMP Laboratory Tests 12/11/16 04:42 Calcium Level 8.4 L, Red Blood Count 5.53, Mean Corpuscular Volume 91.2, Mean Corpuscular Hemoglobin 29.8, Mean Corpuscular Hemoglobin Concent 32.6, Red Cell Distribution Width 12.5 Microbiology Microbiology 12/08/16 Urine Culture - Final, Complete Discharge Medications Scheduled (Valsartan/Hydrochlorothia 320-25 mg) 1 Tab Tab 1 TAB PO DAILY (Reported) NORMALLY TAKES QAM, BUT TOOK AT NIGHT Aspirin (Aspir-81) 81 Mg Tab 81 MG PO DAILY (Reported) NORMALLY TAKES QAM, BUT TOOK AT NIGHT Omeprazole (Omeprazole) 20 Mg Cap 20 MG PO BID (Reported) Tamsulosin Hydrochloride (Flomax) 0.4 Mg Cap 0.4 MG PO DAILY Allergies Coded Allergies: No Known Allergies (Unverified , 08/28/14) CHERELLE MARIE MD Dec 11, 2016 14:25
--- NOTE | 2016-12-12 20:23 | ECGEPIP ---
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
== END 2016-12-11 16:00 | disposition home or self-care (01) ==
LOC: M ED 04:34 → M ED INP 08:14 → M PCU 09:47
PROVIDERS: ADMIT Internal Medicine; ATTEND Internal Medicine
DX: R55 Syncope and collapse (principal); I45.5 Other specified heart block; I10 Essential (primary) hypertension; E66.01 Morbid (severe) obesity due to excess calories; E78.00 Pure hypercholesterolemia, unspecified; M54.5 Low back pain; G89.29 Other chronic pain; K21.9 Gastro-esophageal reflux disease without esophagitis; E78.5 Hyperlipidemia, unspecified; Z87.891 Personal history of nicotine dependence; Z87.442 Personal history of urinary calculi; Z79.899 Other long term (current) drug therapy; Z79.82 Long term (current) use of aspirin; Z82.49 Family history of ischemic heart disease and other diseases of the circulatory system
CPT/HCPCS: 33208; 36415; 70450; 71010; 71020; 74177; 76000; 80048; 81001; 82550; 82553; 84443; 85025; 85027; 85379; 85610; 85730; 87086; 93005; 93041; 94760; 96372; 96374; 96376; 99285; C1785; C1898; J0690; J1650; J2250; J2405; J3010; Q9967

== ENCOUNTER → 2018-11-22 | Outpatient (REF) | payer BC ==
[~2018-11-22] MED LIST changes: +CIPR-249 PO; -CIPR500T89 PO; -COLA100C3 PO; +COLA100C5 PO; +FLOM0.4C39 PO; -FLOM5CAP PO; +PERC7.5T11 PO; -PERC7.5T3 PO
[2018-11-22 13:23] LABS: HEMATOCRIT 50.6 % (42.0-52.0); HEMOGLOBIN 16.6 g/dl (13.5-17.5); MEAN CORPUSCULAR HGB CONC 32.8 g/dl (32.0-36.5); MEAN CORPUSCULAR VOLUME 91.3 fl (80.0-96.0); PLATELET COUNT, AUTOMATED 171 10^3/uL (150-450); RED BLOOD COUNT 5.54 10^6/uL (4.30-6.10); WHITE BLOOD COUNT 8.9 10^3/uL (4.0-10.0)
[2018-11-22 13:47] LABS: HEMOGLOBIN A1c 5.8 %
[2018-11-22 14:08] LABS: ALBUMIN 3.7 GM/DL (3.2-5.2); ALT/SGPT 53 U/L (12-78); BILIRUBIN,TOTAL 0.8 MG/DL (0.2-1.0); BLOOD UREA NITROGEN 25 MG/DL (7-18); CARBON DIOXIDE LEVEL 31 MEQ/L (21-32); CHLORIDE LEVEL 104 MEQ/L (98-107); CHOLESTEROL LEVEL 208 MG/DL (<200); CHOLESTEROL RISK RATIO 7.428 (<5); CREATININE FOR GFR 1.14 MG/DL (0.70-1.30); GLOMERULAR FILTRATION RATE > 60.0 (>56); GLUCOSE, FASTING 105 MG/DL (70-100); HDL CHOLESTEROL 28 MG/DL (>40); LDL CHOLESTEROL 133 MG/DL (<100); NON-HDL-C 180 MG/DL; POTASSIUM SERUM 4.2 MEQ/L (3.5-5.1); SODIUM LEVEL 140 MEQ/L (136-145); THYROID STIMULATING HORMONE 0.968 uIU/ML (0.358-3.740); TOTAL PROTEIN 7.1 GM/DL (6.4-8.2); TRIGLYCERIDES LEVEL 234 MG/DL (<150)
== END ==
LOC: M LAB REF 12:29
PROVIDERS: ATTEND Physician Assistant Medical
DX: I10 Essential (primary) hypertension (principal); E55.9 Vitamin D deficiency, unspecified; R73.01 Impaired fasting glucose; E78.5 Hyperlipidemia, unspecified
CPT/HCPCS: 80053; 80061; 82306; 83036; 84443; 85027; G0103

== ENCOUNTER 2019-01-09 09:49 | Day surgery (SDC) | payer BC ==
[~2019-01-09] VITALS: Ht 182.9 cm; Wt 132.4 kg
[~2019-01-09 09:49] MED LIST changes: +PRED-351 PO; -PRED10TA PO
[2019-01-09] MEDS ORDERED: PROPOFOL 200 MG/20 ML VIAL As Ordered ONE ×2 (10:58→11:37)
[2019-01-09] MEDS ORDERED: ONDANSETRON 4MG/2ML VIAL (J2405) As Ordered ONE (11:37)
[2019-01-09] MEDS ORDERED: dexameTHASONE 4 MG/ML 1ML VIAL (J1100) As Ordered ONE (11:37)
[2019-01-09] MEDS ORDERED: ROCURONIUM BROMIDE 50 MG/5 ML VIAL As Ordered ONE ×2 (11:37→12:20)
[2019-01-09] MEDS ORDERED: LIDOCAINE 2% INJ 100 MG/5 ML SDV (FOR ANES.) As Ordered ONE ×2 (11:37→14:23)
[2019-01-09] MEDS ORDERED: fentaNYL 100 MCG/2 ML INJECTION (J3010) As Ordered ONE ×2 (11:38→13:03)
[2019-01-09] MEDS ORDERED: MIDAZOLAM INJ 2 MG/2 ML VIAL (J2250) As Ordered ONE (11:38)
[2019-01-09] MEDS ORDERED: ACETAMINOPHEN 1000MG 100ML IV BTL (OFIRMEV) (J0131 PER 10MG) As Ordered ONE (12:26)
[2019-01-09] MEDS ORDERED: BUPIVACAINE LIPOSOME/PF 1.3% 20ML VIAL (13.3MG/ML)(EXPAREL)(C9290 PER1MG) As Ordered ONE (12:32)
[2019-01-09] MEDS ORDERED: BUPIVACAINE HCL 0.25% 10 ML VIAL As Ordered ONE (12:32)
[2019-01-09] MEDS ORDERED: ePHEDrine SULFATE 25 MG/5 ML(5MG/ML) SYRINGE As Ordered ONE (14:04)
[2019-01-09] MEDS ORDERED: PHENYLephrine HCL 500 MCG/5 ML (100MCG/ML) SYRINGE (J2370) As Ordered ONE (14:04)
[2019-01-09] MEDS ORDERED: HYDROmorphone HCL 2 MG/ML 1ML VIAL (J1170) As Ordered ONE (14:15)
[2019-01-09] MEDS ORDERED: VASOPRESSIN INJ 20 UNITS/ML VIAL As Ordered ONE (14:27)
[2019-01-09] MEDS ORDERED: SUGAMMADEX SODIUM 500 MG/5 ML VIAL (BRIDION) As Ordered ONE (14:40)
[2019-01-09] MEDS ORDERED: ONDANSETRON 4MG/2ML VIAL (J2405) IV PRN ×2 (15:15)
[2019-01-09] MEDS ORDERED: KETOROLAC 30 MG/ML VIAL (J1885) IV PRN (15:15)
[2019-01-09] MEDS ORDERED: PERCOCET 5MG/325MG TAB PO PRN (15:15)
[2019-01-09] MEDS ORDERED: fentaNYL 100 MCG/2 ML INJECTION (J3010) IV PRN (15:15)
[2019-01-09] MEDS ORDERED: LR 1,000 ML IV SCH ×2 (15:15)
[2019-01-09] MEDS: PERCOCET 5MG/325MG TAB PO PRN ×2 (15:17→15:47)
[2019-01-09 16:07] LABS: CPK CREATINE PHOSPHOKINASE 246 U/L (39-308); MB/CK RELATIVE INDEX 0.85 (< OR =4); TROPONIN I < 0.02 NG/ML (< 0.10)
[2019-01-09 16:15] VITALS: BP 137/87
--- NOTE | 2019-01-10 00:33 | ECGEPIP ---
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
== END 2019-01-09 17:08 | disposition home or self-care (01) ==
LOC: M SDC 09:49
PROVIDERS: ATTEND Surgery
DX: K42.9 Umbilical hernia without obstruction or gangrene (principal); K21.9 Gastro-esophageal reflux disease without esophagitis; J45.909 Unspecified asthma, uncomplicated; F17.210 Nicotine dependence, cigarettes, uncomplicated; Z88.5 Allergy status to narcotic agent; Z79.82 Long term (current) use of aspirin; Z95.0 Presence of cardiac pacemaker; Z79.899 Other long term (current) drug therapy
CPT/HCPCS: 36415; 49585; 82550; 82553; 84484; 88302; 93005; C1781; C9290; J0131; J0690; J1100; J1170; J2250; J2370; J2405; J3010

== ENCOUNTER 2020-05-28 17:43 | Emergency (ER) | payer BC ==
[~2020-05-28] VITALS: Ht 182.9 cm; Wt 132.4 kg
[~2020-05-28 17:43] MED LIST changes: -ASPI81TA85 PO; +ASPI81TA86 PO; +OMEP1CAP73 PO; -OMEP20CA3 PO; -OMEP40CA2 PO; +OMEP40CA97 PO
[2020-05-28] MEDS ORDERED: PANT40TA29 (17:51)
[2020-05-28] MEDS ORDERED: ONDANSETRON 4 MG ORAL DISINTEGRATING TAB PO ONE (19:30)
[2020-05-28] MEDS ORDERED: MORPHINE 4 MG/ML 1ML VIAL/SYRINGE (J2270) IM ONE (19:30)
--- NOTE | 2020-05-28 19:33 | REPVR ---
PROCEDURE INFORMATION: Exam: XR Left Clavicle, Complete Exam date and time: 05/28/2020 5:59 PM Age: 54 years old Clinical indication: Injury or trauma; Fall; Initial encounter; Swelling (edema); Shoulder; Left TECHNIQUE: Imaging protocol: XR Left clavicle complete. Any number of views. COMPARISON: CR Chest, 2 view PA, Lat 12/11/2016 8:37 AM FINDINGS: Bones/joints: Fracture of the mid left clavicle. The proximal fracture fragment is displaced superiorly. Soft tissues: Normal. IMPRESSION: Acute fracture of the mid left clavicle. Electronically signed by: Kiko Camacho On 05/28/2020 19:33:18 PM
[2020-05-28] MEDS ORDERED: PERC5TAB12 PO ×2 (19:40→19:55)
[2020-05-28 20:06] VITALS: BP 160/90
== END 2020-05-28 20:06 | disposition home or self-care (01) ==
LOC: M ED 17:43
DX: S42.002A Fracture of unspecified part of left clavicle, initial encounter for closed fracture (principal); W17.81XA Fall down embankment (hill), initial encounter; Y92.9 Unspecified place or not applicable; Y99.9 Unspecified external cause status; F17.200 Nicotine dependence, unspecified, uncomplicated; Z88.6 Allergy status to analgesic agent; Z79.899 Other long term (current) drug therapy
CPT/HCPCS: 73000; 96372; 99284; J2270; Q0162

== ENCOUNTER 2021-09-28 05:46 | Inpatient (IN) | payer BC ==
[~2021-09-28] VITALS: Ht 182.9 cm; Wt 129.6 kg
[~2021-09-28 05:46] MED LIST changes: -LISI-538 PO; +LISI20TA33 PO; +OMEP40CA4 PO; -OMEP40CA97 PO; +PANT40TA29 PO; +PERC5TAB12 PO
[2021-09-28 06:35] LABS: BASO # 0.1 10^3/uL (0.0-0.2); BASO % 1.1 % (0.0-1.0); EOS # 0.2 10^3/uL (0.0-0.5); EOS % 2.4 % (0.0-3.0); HEMATOCRIT 48.4 % (42.0-52.0); HEMOGLOBIN 16.6 g/dl (13.5-17.5); LYMPH # 3.3 10^3/uL (1.5-5.0); LYMPH % 35.2 % (24.0-44.0); MEAN CORPUSCULAR HEMOGLOBIN 32.1 pg (27.0-33.0); MEAN CORPUSCULAR HGB CONC 34.3 g/dl (32.0-36.5); MEAN CORPUSCULAR VOLUME 93.6 fl (80.0-96.0); MONO # 0.7 10^3/uL (0.0-0.8); MONO % 7.6 % (2.0-8.0); NEUTROPHILS # 5.1 10^3/uL (1.5-8.5); NEUTROPHILS % 53.4 % (36.0-66.0); PLATELET COUNT, AUTOMATED 193 10^3/uL (150-450); RED BLOOD COUNT 5.17 10^6/uL (4.30-6.10); WHITE BLOOD COUNT 9.5 10^3/uL (4.0-10.0)
[2021-09-28 06:56] LABS: INR 0.92; PROTHROMBIN TIME 12.8 SECONDS (12.7-14.5)
[2021-09-28 07:04] LABS: CK-MB VALUE MASS 3.2 NG/ML (<3.6); MB/CK RELATIVE INDEX 1.07 (< OR =4)
[2021-09-28 07:09] LABS: CALCIUM LEVEL 9.4 MG/DL (8.5-10.1); CREATININE FOR GFR 2.33 MG/DL (0.70-1.30); ETHYL ALCOHOL (ETHANOL) 0.025 % (0.000-0.010); GLOMERULAR FILTRATION RATE 31.4 (>56); POTASSIUM SERUM 3.5 MEQ/L (3.5-5.1); THYROID STIMULATING HORMONE 0.846 uIU/ML (0.358-3.740)
[2021-09-28] MEDS ORDERED: NS 1,000 ML IV ONE (07:45)
[2021-09-28] MEDS ORDERED: ASPI81TA26 PO (08:08)
[2021-09-28] MEDS ORDERED: FLOM0.4C39 PO (08:09)
[2021-09-28] MEDS ORDERED: HOME MED LIST COMPLETE! XX SCH (08:10)
[2021-09-28] MEDS ORDERED: ASPIRIN 81MG ENTERIC TABLET PO SCH (11:30)
[2021-09-28] MEDS ORDERED: LORazepam 2 MG TAB PO PRN (12:30)
[2021-09-28] MEDS ORDERED: LIDOCAINE 5% (LIDODERM) PATCH TD ONE (12:35)
[2021-09-28 13:07] LABS: FOLATE 6.3 NG/ML (>5.4); FREE T4 1.14 NG/DL (0.76-1.46); THYROID STIMULATING HORMONE 0.462 uIU/ML (0.358-3.740)
[2021-09-28] MEDS: ATORVASTATIN 20 MG TAB PO SCH (13:50)
[2021-09-28] MEDS: FOLIC ACID 1 MG TAB PO SCH (13:50)
[2021-09-28] MEDS: NICOTINE 21MG/24HR 1 EA TRANSDERMAL TD SCH (13:51)
[2021-09-28] MEDS: MULTIVITAMINS/MINERALS THERAP 1 TAB PO SCH (13:51)
[2021-09-28] MEDS: THIAMINE 100 MG TAB PO SCH ×2 (13:51→20:13)
[2021-09-28] MEDS: NS 1,000 ML IV SCH ×2 (13:51→22:04)
[2021-09-28 14:00] VITALS: BP 110/59
[2021-09-28] MEDS: ACETAMINOPHEN TAB 650MG DOSE (2X325MG) PO SCH ×2 (14:00→14:32)
[2021-09-28 14:46] LABS: AMPHETAMINES LEVEL URINE POSITIVE (NEGATIVE); BARBITURATES URINE NEGATIVE (NEGATIVE); BENZODIAZEPINES URINE NEGATIVE (NEGATIVE); CANNABINOIDS URINE NEGATIVE (NEGATIVE); COCAINE METABOLITE URINE POSITIVE (NEGATIVE); METHADONE URINE NEGATIVE (NEGATIVE); OPIATES URINE NEGATIVE (NEGATIVE); PHENCYCLIDINE URINE NEGATIVE (NEGATIVE)
[2021-09-28 14:50] VITALS: BP 112/58
[2021-09-28] MEDS: **NOTE PATIENT COMMENT** MISC XX SCH ×2 (20:13→20:39)
[2021-09-28] MEDS ORDERED: RAMELTEON 8 MG TAB (ROZEREM) PO PRN (20:30)
[2021-09-28] MEDS ORDERED: PANTOPRAZOLE 40MG TAB (PROTONIX) PO SCH (21:00)
[2021-09-28] MEDS ORDERED: TAMSULOSIN 0.4 MG CAP PO SCH (21:00)
[2021-09-28 21:35] VITALS: BP 103/80
[2021-09-28 22:00] VITALS: BP_SYST 103; BP_SYST 110; BP_DIAS 59; BP_DIAS 80
[2021-09-29] MEDS: ACETAMINOPHEN TAB 650MG DOSE (2X325MG) PO SCH ×3 (05:27→12:11)
[2021-09-29 06:00] VITALS: BP_SYST 103; BP_SYST 95; BP_DIAS 60; BP_DIAS 80
[2021-09-29 08:00] VITALS: BP 124/82
[2021-09-29] MEDS: MULTIVITAMINS/MINERALS THERAP 1 TAB PO SCH (09:07)
[2021-09-29] MEDS: THIAMINE 100 MG TAB PO SCH (09:07)
[2021-09-29] MEDS: FOLIC ACID 1 MG TAB PO SCH (09:07)
[2021-09-29] MEDS: ATORVASTATIN 20 MG TAB PO SCH (09:07)
[2021-09-29] MEDS: NICOTINE 21MG/24HR 1 EA TRANSDERMAL TD SCH (09:08)
[2021-09-29] MEDS ORDERED: VALS160T2 PO (13:23)
[2021-09-29 13:30] VITALS: BP_SYST 106; BP_SYST 109; BP_SYST 110; BP_DIAS 64; BP_DIAS 65
[2021-09-29 14:00] VITALS: BP 108/65
[2021-09-29] MEDS ORDERED: ATEN25TA PO (14:28)
[2021-09-29 15:21] LABS: CALCIUM LEVEL 8.9 MG/DL (8.5-10.1); CREATININE FOR GFR 1.42 MG/DL (0.70-1.30); GLOMERULAR FILTRATION RATE 55.5 (>56); POTASSIUM SERUM 4.5 MEQ/L (3.5-5.1)
== END 2021-09-29 16:45 | disposition home or self-care (01) | DRG 469 ==
LOC: M ED 05:46 → ENRESERV 12:15 → M ED INP 12:40 → M MSPAV 14:53
PROVIDERS: ADMIT Internal Medicine; ATTEND Internal Medicine Nephrology
DX: N17.9 Acute kidney failure, unspecified (principal); I12.9 Hypertensive chronic kidney disease with stage 1 through stage 4 chronic kidney disease, or unspecified chronic kidney disease; R55 Syncope and collapse; M54.16 Radiculopathy, lumbar region; E78.5 Hyperlipidemia, unspecified; K21.9 Gastro-esophageal reflux disease without esophagitis; F17.200 Nicotine dependence, unspecified, uncomplicated; F10.10 Alcohol abuse, uncomplicated; I77.811 Abdominal aortic ectasia; F14.10 Cocaine abuse, uncomplicated; N18.9 Chronic kidney disease, unspecified; Z79.899 Other long term (current) drug therapy; Z95.0 Presence of cardiac pacemaker; Z88.5 Allergy status to narcotic agent; Z87.442 Personal history of urinary calculi; Z79.82 Long term (current) use of aspirin; Z86.16 Personal history of COVID-19; Z91.19 Patient's noncompliance with other medical treatment and regimen

== ENCOUNTER 2022-01-16 19:08 | Emergency (ER) | payer BC ==
[~2022-01-16] VITALS: Ht 182.9 cm; Wt 125.0 kg
[~2022-01-16 19:08] MED LIST changes: +ASPI81TA26 PO; +ATEN25TA PO; +VALS160T2 PO
[2022-01-16] MEDS ORDERED: ATOR40TA75 (19:19)
[2022-01-16] MEDS ORDERED: LEXA1TAB (19:19)
[2022-01-16 19:56] LABS: BASO # 0.1 10^3/uL (0.0-0.2); BASO % 1.2 % (0.0-1.0); EOS # 0.2 10^3/uL (0.0-0.5); EOS % 2.3 % (0.0-3.0); HEMATOCRIT 53.3 % (42.0-52.0); HEMOGLOBIN 17.9 g/dl (13.5-17.5); LYMPH # 2.4 10^3/uL (1.5-5.0); LYMPH % 25.6 % (24.0-44.0); MEAN CORPUSCULAR HEMOGLOBIN 30.4 pg (27.0-33.0); MEAN CORPUSCULAR HGB CONC 33.6 g/dl (32.0-36.5); MEAN CORPUSCULAR VOLUME 90.5 fl (80.0-96.0); MONO # 0.6 10^3/uL (0.0-0.8); MONO % 6.4 % (2.0-8.0); NEUTROPHILS % 64.2 % (36.0-66.0); PLATELET COUNT, AUTOMATED 176 10^3/uL (150-450); RED BLOOD COUNT 5.89 10^6/uL (4.30-6.10); WHITE BLOOD COUNT 9.4 10^3/uL (4.0-10.0)
[2022-01-16 20:25] LABS: CK-MB VALUE MASS 2.9 NG/ML (<3.6); MB/CK RELATIVE INDEX 2.06 (< OR =4)
[2022-01-16] MEDS ORDERED: MORPHINE 4 MG/ML 1ML VIAL/SYRINGE IV ONE (20:25)
[2022-01-16 20:26] LABS: BLOOD UREA NITROGEN 16 MG/DL (7-18); CALCIUM LEVEL 10.2 MG/DL (8.5-10.1); CARBON DIOXIDE LEVEL 30 MEQ/L (21-32); CHLORIDE LEVEL 105 MEQ/L (98-107); CREATININE FOR GFR 1.16 MG/DL (0.70-1.30); GLOMERULAR FILTRATION RATE > 60.0 (>56); GLUCOSE, FASTING 94 MG/DL (70-100); NT-PRO BNP 56 PG/ML (<125); POTASSIUM SERUM 4.3 MEQ/L (3.5-5.1); SODIUM LEVEL 140 MEQ/L (136-145)
[2022-01-16] MEDS ORDERED: ACETAMINOPHEN 500 MG TAB PO ONE (20:35)
[2022-01-16] MEDS ORDERED: METOCLOPRAMIDE INJ 10MG/2ML VIAL (J2765 PER 1) IV ONE (20:35)
[2022-01-16] MEDS ORDERED: NS 1,000 ML IV ONE (20:35)
[2022-01-16] MEDS ORDERED: KETOROLAC 30 MG/ML 1ML VIAL IV ONE (20:35)
[2022-01-16] MEDS ORDERED: diphenhydrAMINE 50MG/ML VIAL (J1200) IV ONE (20:35)
[2022-01-16 22:21] VITALS: BP 162/94
== END 2022-01-16 22:36 | disposition home or self-care (01) ==
LOC: M ED 19:08
DX: R51.9 Headache, unspecified (principal); I10 Essential (primary) hypertension; E78.5 Hyperlipidemia, unspecified; F17.210 Nicotine dependence, cigarettes, uncomplicated
CPT/HCPCS: 70450; 71045; 80048; 82550; 82553; 83880; 84484; 85025; 93005; 93041; 94760; 96374; 99284; J1200; J1885; J2765

== ENCOUNTER 2023-03-17 15:57 | Emergency (ER) | payer BC, OTHER ==
[~2023-03-17] VITALS: Ht 182.9 cm; Wt 122.9 kg
[~2023-03-17 15:57] MED LIST changes: +ATOR40TA75; +LEXA1TAB
[2023-03-17 16:41] LABS: BASO % 0.4 % (0.0-1.0); EOS # 0.3 10^3/uL (0.0-0.5); EOS % 5.3 % (0.0-3.0); HEMATOCRIT 52.2 % (42.0-52.0); HEMOGLOBIN 17.5 g/dl (13.5-17.5); LYMPH % 21.3 % (24.0-44.0); MEAN CORPUSCULAR HEMOGLOBIN 29.5 pg (27.0-33.0); MEAN CORPUSCULAR HGB CONC 33.5 g/dl (32.0-36.5); MONO # 0.3 10^3/uL (0.0-0.8); MONO % 6.4 % (2.0-8.0); NEUTROPHILS # 3.2 10^3/uL (1.5-8.5); NEUTROPHILS % 66.4 % (36.0-66.0); PLATELET COUNT, AUTOMATED 121 10^3/uL (150-450); RED BLOOD COUNT 5.93 10^6/uL (4.30-6.10); WHITE BLOOD COUNT 4.9 10^3/uL (4.0-10.0)
[2023-03-17] MEDS ORDERED: ONDANSETRON 4MG 2ML VIAL IV ONE (17:00)
[2023-03-17] MEDS ORDERED: fentaNYL 100 MCG/2 ML INJECTION IV PRN (17:00)
[2023-03-17 17:04] LABS: LIPASE 37 U/L (12-53)
[2023-03-17 17:06] LABS: CK-MB VALUE MASS 1.8 NG/ML (<3.6); INR 0.92; PROTHROMBIN TIME 12.6 SECONDS (12.5-14.5)
[2023-03-17 17:08] LABS: ALBUMIN 3.8 G/DL (3.2-5.2); ALKALINE PHOSPHATASE 74 U/L (46-116); ALT/SGPT 76 U/L (7.0-40); AST/SGOT 23 U/L (<34); BILIRUBIN,DIRECT 0.6 MG/DL (<0.4); BILIRUBIN,TOTAL 1.7 MG/DL (0.3-1.2); BLOOD UREA NITROGEN 20 MG/DL (9-23); CALCIUM LEVEL 8.7 MG/DL (8.5-10.1); CARBON DIOXIDE LEVEL 23 MMOL/L (20-31); CHLORIDE LEVEL 108 MMOL/L (98-107); CREATININE FOR GFR 0.99 MG/DL (0.70-1.30); GLOMERULAR FILTRATION RATE > 60.0 (>56); GLUCOSE, FASTING 144 MG/DL (60-100); POTASSIUM SERUM 3.8 MMOL/L (3.5-5.1); SODIUM LEVEL 139 MMOL/L (136-145); TOTAL PROTEIN 6.7 G/DL (5.7-8.2)
[2023-03-17 17:09] LABS: THYROID STIMULATING HORMONE 0.974 uIU/ML (0.55-4.78)
[2023-03-17 17:11] LABS: CPK CREATINE PHOSPHOKINASE 140 U/L (46-171); MB/CK RELATIVE INDEX 1.28 (< OR =4)
[2023-03-17] MEDS ORDERED: ISOVUE-370 76% 100ML VIAL As Ordered ONE (17:11)
[2023-03-17] MEDS ORDERED: CYCLOBENZAPRINE 10MG TABLET PO ONE (18:15)
[2023-03-17] MEDS ORDERED: CYCL-707 PO (18:29)
[2023-03-17] MEDS ORDERED: NAPR-837 PO (18:29)
[2023-03-17 18:40] VITALS: BP 140/79; TEMP 97.9; O2SAT 95
== END 2023-03-17 18:50 | disposition home or self-care (01) ==
LOC: M ED 15:57
DX: T07.XXXA Unspecified multiple injuries, initial encounter (principal); V49.40XA Driver injured in collision with unspecified motor vehicles in traffic accident, initial encounter; Y92.410 Unspecified street and highway as the place of occurrence of the external cause; Y93.89 Activity, other specified; Y99.8 Other external cause status; I10 Essential (primary) hypertension; F10.10 Alcohol abuse, uncomplicated; F11.10 Opioid abuse, uncomplicated; E78.5 Hyperlipidemia, unspecified; M54.9 Dorsalgia, unspecified; Z87.442 Personal history of urinary calculi
CPT/HCPCS: 71045; 71260; 72125; 72128; 72131; 74177; 80048; 80076; 82550; 82553; 83690; 84443; 84484; 85025; 85610; 93005; 93041; 94760; 96365; 96366; 96375; 99285; J2405; J3010; Q9967

== ENCOUNTER 2024-02-10 22:20 | Emergency (ER) | payer OTHER ==
[~2024-02-10] VITALS: Ht 182.9 cm; Wt 122.7 kg
[~2024-02-10 22:20] MED LIST changes: +CYCL-707 PO; +NAPR-837 PO
[2024-02-10 22:23] VITALS: BP 139/78; TEMP 98.6; O2SAT 97
== END 2024-02-11 02:27 | disposition left against medical advice (07) ==
LOC: M ED 22:20
DX: Z53.21 Procedure and treatment not carried out due to patient leaving prior to being seen by health care provider (principal)

== ENCOUNTER → 2024-07-25 | Outpatient (CLI) | payer OTHER ==
[~2024-07-25] MED LIST changes: +ISOVUE-370 76% 100ML VIAL As Ordered ONE
== END ==
LOC: M RAD 15:02
PROVIDERS: ATTEND Physician Assistant Medical
DX: I26.99 Other pulmonary embolism without acute cor pulmonale (principal)
CPT/HCPCS: 70486; 71260; Q9967

== ENCOUNTER 2024-09-06 14:06 | Inpatient (IN) | payer OTHER ==
[~2024-09-06] VITALS: Ht 182.9 cm; Wt 143.0 kg
[~2024-09-06 14:06] MED LIST changes: -ATOR40TA75; +ATOR40TA75 PO; -ISOVUE-370 76% 100ML VIAL As Ordered ONE
[2024-09-06 15:08] LABS: BASO # 0.1 10^3/uL (0.0-0.2); BASO % 1.1 % (0.0-1.0); EOS # 0.2 10^3/uL (0.0-0.5); EOS % 2.6 % (0.0-3.0); HEMATOCRIT 50.4 % (42.0-52.0); HEMOGLOBIN 17.5 g/dl (13.5-17.5); LYMPH # 1.7 10^3/uL (1.5-5.0); LYMPH % 25.2 % (24.0-44.0); MEAN CORPUSCULAR HEMOGLOBIN 29.7 pg (27.0-33.0); MEAN CORPUSCULAR HGB CONC 34.7 g/dl (32.0-36.5); MEAN CORPUSCULAR VOLUME 85.6 fl (80.0-96.0); MONO # 0.5 10^3/uL (0.0-0.8); MONO % 7.2 % (2.0-8.0); NEUTROPHILS # 4.2 10^3/uL (1.5-8.5); NEUTROPHILS % 63.6 % (36.0-66.0); PLATELET COUNT, AUTOMATED 153 10^3/uL (150-450); RED BLOOD COUNT 5.89 10^6/uL (4.30-6.10); WHITE BLOOD COUNT 6.7 10^3/uL (4.0-10.0)
[2024-09-06 15:37] LABS: ETHYL ALCOHOL (ETHANOL) < 0.003 % (0.000-0.010)
[2024-09-06 15:39] LABS: ALBUMIN 4.2 G/DL (3.2-5.2); ALKALINE PHOSPHATASE 67 U/L (40-129); ALT/SGPT 119 U/L (7.0-40); AST/SGOT 85 U/L (<34); BILIRUBIN,DIRECT 0.5 MG/DL (<0.4); BILIRUBIN,TOTAL 1.5 MG/DL (0.3-1.2); BLOOD UREA NITROGEN 20 MG/DL (9-23); CALCIUM LEVEL 9.8 MG/DL (8.5-10.1); CARBON DIOXIDE LEVEL 25 MMOL/L (20-31); CHLORIDE LEVEL 102 MMOL/L (98-107); CREATININE FOR GFR 1.37 MG/DL (0.70-1.30); GLOMERULAR FILTRATION RATE 57.2 (>56); GLUCOSE, FASTING 106 MG/DL (60-100); SALICYLATE LEVEL < 3.0 MG/DL (<30); SODIUM LEVEL 137 MMOL/L (136-145); TOTAL PROTEIN 7.7 G/DL (5.7-8.2)
[2024-09-06 15:43] LABS: CPK CREATINE PHOSPHOKINASE 324 U/L (46-171); THYROID STIMULATING HORMONE 1.345 uIU/ML (0.55-4.78)
[2024-09-06] MEDS: CHARCOAL ACTIVATED LIQUID 25GM/120ML BTL PO ONE (16:16)
[2024-09-06] MEDS: NS (Normal Saline) 0.9% 1,000 ML IV SCH ×2 (16:16→18:10)
[2024-09-06] MEDS: ACETYLCYSTEINE 15,000 MG in D5W 250 ML IV ONE (17:40)
[2024-09-06] MEDS ORDERED: LORazepam 2 MG/ML 1ML VIAL As Ordered ONE (17:49)
[2024-09-06] MEDS ORDERED: BUPR-71 PO (17:51)
[2024-09-06] MEDS ORDERED: FLUTISP NARES (17:51)
[2024-09-06] MEDS ORDERED: PRAZ1CAP PO (17:51)
[2024-09-06] MEDS ORDERED: ALLO100T PO (17:51)
[2024-09-06] MEDS ORDERED: HYDR-3490 PO (17:51)
[2024-09-06] MEDS ORDERED: SEMA0.257 SQ (17:51)
[2024-09-06] MEDS ORDERED: TRAZ-257 PO (17:51)
[2024-09-06] MEDS ORDERED: VALS1TAB66 PO (17:51)
[2024-09-06] MEDS ORDERED: ADVA115A INH (17:53)
[2024-09-06] MEDS ORDERED: med rec comment (17:54)
[2024-09-06] MEDS ORDERED: HOME MED LIST COMPLETE! XX SCH (17:55)
[2024-09-06] MEDS: LORazepam 2 MG/ML 1ML VIAL IV STA (17:57)
[2024-09-06 18:56] LABS: AMPHETAMINES LEVEL URINE NEGATIVE (NEGATIVE); BARBITURATES URINE NEGATIVE (NEGATIVE); BENZODIAZEPINES URINE NEGATIVE (NEGATIVE); CANNABINOIDS URINE NEGATIVE (NEGATIVE); COCAINE METABOLITE URINE NEGATIVE (NEGATIVE); METHADONE URINE NEGATIVE (NEGATIVE); PHENCYCLIDINE URINE NEGATIVE (NEGATIVE)
[2024-09-06 18:57] LABS: OPIATES URINE POSITIVE (NEGATIVE)
[2024-09-06] MEDS: ACETYLCYSTEINE 5,000 MG in D5W 500 ML IV ONE (20:02)
[2024-09-06] MEDS ORDERED: ALBUTEROL SULFATE 2.5MG/0.5ML INH NEB SOLN NEB PRN (20:35)
[2024-09-06] MEDS: DOCUSATE SODIUM 100MG CAPSULE PO SCH (21:00)
[2024-09-06] MEDS: PANTOPRAZOLE 40MG VIAL IV SCH (22:00)
[2024-09-07] MEDS: ACETYLCYSTEINE 10,000 MG in D5W 1,000 ML IV ONE (00:07)
[2024-09-07 07:05] LABS: BASO # 0.1 10^3/uL (0.0-0.2); EOS # 0.1 10^3/uL (0.0-0.5); EOS % 1.2 % (0.0-3.0); HEMOGLOBIN 16.5 g/dl (13.5-17.5); LYMPH # 2.4 10^3/uL (1.5-5.0); LYMPH % 28.6 % (24.0-44.0); MEAN CORPUSCULAR HEMOGLOBIN 29.2 pg (27.0-33.0); MEAN CORPUSCULAR HGB CONC 34.4 g/dl (32.0-36.5); MONO # 0.6 10^3/uL (0.0-0.8); MONO % 7.7 % (2.0-8.0); NEUTROPHILS % 61.1 % (36.0-66.0); PLATELET COUNT, AUTOMATED 138 10^3/uL (150-450); RED BLOOD COUNT 5.65 10^6/uL (4.30-6.10); WHITE BLOOD COUNT 8.2 10^3/uL (4.0-10.0)
[2024-09-07 07:22] LABS: ALBUMIN 3.5 G/DL (3.2-5.2); ALKALINE PHOSPHATASE 57 U/L (40-129); ALT/SGPT 92 U/L (7.0-40); AST/SGOT 46 U/L (<34); BILIRUBIN,TOTAL 2.2 MG/DL (0.3-1.2); BLOOD UREA NITROGEN 17 MG/DL (9-23); CALCIUM LEVEL 9.1 MG/DL (8.5-10.1); CARBON DIOXIDE LEVEL 25 MMOL/L (20-31); CHLORIDE LEVEL 101 MMOL/L (98-107); CREATININE FOR GFR 1.09 MG/DL (0.70-1.30); GLOMERULAR FILTRATION RATE > 60.0 (>56); GLUCOSE, FASTING 129 MG/DL (60-100); POTASSIUM SERUM 3.5 MMOL/L (3.5-5.1); SODIUM LEVEL 137 MMOL/L (136-145)
[2024-09-07] MEDS: FORMOTEROL FUMARATE 20 MCG/2 ML INHALATION SOLUTION (PERFOROMIST) INH SCH (07:36)
[2024-09-07] MEDS: BUDESONIDE 0.5 MG/2 ML INHALATION SUSPENSION NEB SCH (07:36)
[2024-09-07] MEDS: VALSARTAN 80 MG TAB (DIOVAN) PO SCH (08:47)
[2024-09-07] MEDS: allopurinoL 100 MG TAB PO SCH (08:47)
[2024-09-07] MEDS: LORazepam 2 MG/ML 1ML VIAL IV PRN (08:48)
[2024-09-07] MEDS: ONDANSETRON 4MG 2ML VIAL IV PRN (14:32)
[2024-09-07 14:41] LABS: ALBUMIN 3.4 G/DL (3.2-5.2); ALKALINE PHOSPHATASE 57 U/L (40-129); ALT/SGPT 88 U/L (7.0-40); AST/SGOT 44 U/L (<34); BILIRUBIN,DIRECT 0.6 MG/DL (<0.4); BILIRUBIN,TOTAL 1.9 MG/DL (0.3-1.2); TOTAL PROTEIN 6.8 G/DL (5.7-8.2)
[2024-09-07 17:30] VITALS: BP 138/80; TEMP 98; O2SAT 96
[2024-09-07 20:45] VITALS: BP 137/84; TEMP 98.6; O2SAT 94
[2024-09-07] MEDS: TAMSULOSIN 0.4 MG CAP PO SCH (21:22)
[2024-09-07] MEDS: ASPIRIN 81MG ENTERIC TABLET PO SCH (21:22)
[2024-09-07] MEDS: PRAZOSIN 1 MG CAP PO SCH (21:23)
[2024-09-08 04:00] VITALS: BP 120/85; TEMP 97.5; O2SAT 95
[2024-09-08 06:22] LABS: BASO # 0.1 10^3/uL (0.0-0.2); BASO % 0.8 % (0.0-1.0); EOS # 0.1 10^3/uL (0.0-0.5); EOS % 1.5 % (0.0-3.0); HEMATOCRIT 45.6 % (42.0-52.0); HEMOGLOBIN 15.3 g/dl (13.5-17.5); LYMPH % 27.8 % (24.0-44.0); MEAN CORPUSCULAR HEMOGLOBIN 29.5 pg (27.0-33.0); MEAN CORPUSCULAR HGB CONC 33.6 g/dl (32.0-36.5); MEAN CORPUSCULAR VOLUME 87.9 fl (80.0-96.0); MONO # 0.6 10^3/uL (0.0-0.8); MONO % 7.6 % (2.0-8.0); NEUTROPHILS # 4.5 10^3/uL (1.5-8.5); PLATELET COUNT, AUTOMATED 118 10^3/uL (150-450); RED BLOOD COUNT 5.19 10^6/uL (4.30-6.10); WHITE BLOOD COUNT 7.2 10^3/uL (4.0-10.0)
[2024-09-08 06:49] LABS: ALBUMIN 3.3 G/DL (3.2-5.2); BILIRUBIN,TOTAL 1.5 MG/DL (0.3-1.2); CREATININE FOR GFR 1.38 MG/DL (0.70-1.30); GLOMERULAR FILTRATION RATE 56.7 (>56); TOTAL PROTEIN 6.1 G/DL (5.7-8.2)
[2024-09-08 07:21] LABS: HEMOGLOBIN A1c 8.1 % (4.0-6.0)
[2024-09-08] MEDS: metFORMIN (GLUCOPHAGE) 500MG TAB PO SCH (09:37)
[2024-09-08] MEDS: ADVAIR HFA 115/21MCG INHALER INH SCH (10:18)
[2024-09-08 16:18] VITALS: BP 137/70; TEMP 99; O2SAT 94
[2024-09-08 19:59] VITALS: BP 146/81; TEMP 99.6; O2SAT 95
[2024-09-08 21:03] VITALS: BP 146/81
[2024-09-08] MEDS: buPROPion **SR TABLET** (ZYBAN) 150MG PO SCH (21:03)
[2024-09-08] MEDS: traZODone 100 MG TAB PO SCH (21:04)
[2024-09-08] MEDS: PANTOPRAZOLE 40MG TAB (PROTONIX) PO SCH (21:04)
== END 2024-09-08 21:12 | DRG 812 ==
LOC: M ED 14:06 → M ED INP 17:27 → M MSPAV 09-07 17:30
PROVIDERS: ADMIT Internal Medicine Nephrology; ATTEND Internal Medicine Nephrology
DX: T48.3X2A Poisoning by antitussives, intentional self-harm, initial encounter (principal); G92.8 Other toxic encephalopathy; F33.2 Major depressive disorder, recurrent severe without psychotic features; E11.22 Type 2 diabetes mellitus with diabetic chronic kidney disease; I49.5 Sick sinus syndrome; G25.3 Myoclonus; Z68.41 Body mass index [BMI] 40.0-44.9, adult; I48.0 Paroxysmal atrial fibrillation; I12.9 Hypertensive chronic kidney disease with stage 1 through stage 4 chronic kidney disease, or unspecified chronic kidney disease; E66.01 Morbid (severe) obesity due to excess calories; E78.5 Hyperlipidemia, unspecified; E80.6 Other disorders of bilirubin metabolism; F32.A Depression, unspecified; F43.21 Adjustment disorder with depressed mood; G89.29 Other chronic pain; J45.909 Unspecified asthma, uncomplicated; K21.9 Gastro-esophageal reflux disease without esophagitis; M10.9 Gout, unspecified; M54.50 Low back pain, unspecified; N18.9 Chronic kidney disease, unspecified; N40.1 Benign prostatic hyperplasia with lower urinary tract symptoms; R25.3 Fasciculation; R33.9 Retention of urine, unspecified; R74.01 Elevation of levels of liver transaminase levels; T39.1X2A Poisoning by 4-Aminophenol derivatives, intentional self-harm, initial encounter; T45.0X2A Poisoning by antiallergic and antiemetic drugs, intentional self-harm, initial encounter; Z95.0 Presence of cardiac pacemaker; Z88.5 Allergy status to narcotic agent; Z79.82 Long term (current) use of aspirin; Z79.1 Long term (current) use of non-steroidal anti-inflammatories (NSAID); Z79.899 Other long term (current) drug therapy; Z56.0 Unemployment, unspecified; Z63.5 Disruption of family by separation and divorce

== ENCOUNTER 2024-09-08 16:39 | Inpatient (IN) | payer OTHER ==
[~2024-09-08] VITALS: Ht 182.9 cm; Wt 143.0 kg
[~2024-09-08 16:39] MED LIST changes: +ADVA115A INH; +ALLO100T PO; +BUPR-71 PO; +FLUTISP NARES; +HYDR-3490 PO; +PRAZ1CAP PO; +SEMA0.257 SQ; +TRAZ-257 PO; +VALS1TAB66 PO; +med rec comment
[2024-09-08] MEDS ORDERED: MOM 30ML SUSPENSION UDC PO PRN (18:55)
[2024-09-08] MEDS ORDERED: diphenhydrAMINE 25MG CAP PO PRN (18:55)
[2024-09-08] MEDS ORDERED: IBUPROFEN 400MG TAB PO PRN (18:55)
[2024-09-08] MEDS ORDERED: MAALOX 30 ML SUSP *UDC PO PRN (18:55)
[2024-09-08] MEDS: ALBUTEROL SULFATE 2.5MG/0.5ML INH NEB SOLN NEB SCH (20:00)
[2024-09-08] MEDS ORDERED: HOME MED LIST COMPLETE! XX SCH (21:45)
[2024-09-08] MEDS: ACETAMINOPHEN 325 MG TAB PO PRN (22:37)
[2024-09-08] MEDS: LORazepam 1 MG TAB PO PRN (22:41)
[2024-09-08 23:14] VITALS: BP 134/84; TEMP 98.5; O2SAT 94
[2024-09-09 06:17] VITALS: BP 115/59; TEMP 97.8; O2SAT 96
[2024-09-09] MEDS: ADVAIR HFA 115/21MCG INHALER INH SCH (08:00)
[2024-09-09] MEDS: allopurinoL 100 MG TAB PO SCH (09:09)
[2024-09-09] MEDS: DOCUSATE SODIUM 100MG CAPSULE PO SCH (09:09)
[2024-09-09] MEDS: metFORMIN (GLUCOPHAGE) 500MG TAB PO SCH (09:09)
[2024-09-09] MEDS: buPROPion **SR TABLET** (ZYBAN) 150MG PO SCH (09:09)
[2024-09-09] MEDS: VALSARTAN 80 MG TAB (DIOVAN) PO SCH (09:10)
[2024-09-09 14:02] LABS: BASO # 0.1 10^3/uL (0.0-0.2); BASO % 0.7 % (0.0-1.0); EOS # 0.1 10^3/uL (0.0-0.5); EOS % 1.5 % (0.0-3.0); HEMATOCRIT 46.7 % (42.0-52.0); HEMOGLOBIN 15.5 g/dl (13.5-17.5); LYMPH # 1.6 10^3/uL (1.5-5.0); LYMPH % 19.4 % (24.0-44.0); MEAN CORPUSCULAR HEMOGLOBIN 29.4 pg (27.0-33.0); MEAN CORPUSCULAR HGB CONC 33.2 g/dl (32.0-36.5); MEAN CORPUSCULAR VOLUME 88.6 fl (80.0-96.0); MONO # 0.5 10^3/uL (0.0-0.8); NEUTROPHILS # 5.9 10^3/uL (1.5-8.5); PLATELET COUNT, AUTOMATED 128 10^3/uL (150-450); RED BLOOD COUNT 5.27 10^6/uL (4.30-6.10); WHITE BLOOD COUNT 8.2 10^3/uL (4.0-10.0)
[2024-09-09 14:13] LABS: INR 0.92; PARTIAL THROMBOPLASTIN TIME 23.2 SECONDS (24.8-34.2); PROTHROMBIN TIME 12.6 SECONDS (12.5-14.5)
[2024-09-09] MEDS: traMADol 50 MG TAB PO SCH (14:17)
[2024-09-09] MEDS: ACETAMINOPHEN 500 MG TAB PO SCH (14:18)
[2024-09-09 14:26] LABS: BLOOD UREA NITROGEN 25 MG/DL (9-23); CALCIUM LEVEL 9.2 MG/DL (8.5-10.1); CARBON DIOXIDE LEVEL 28 MMOL/L (20-31); CHLORIDE LEVEL 106 MMOL/L (98-107); CREATININE FOR GFR 1.22 MG/DL (0.70-1.30); GLOMERULAR FILTRATION RATE > 60.0 (>56); GLUCOSE, FASTING 139 MG/DL (60-100); POTASSIUM SERUM 4.1 MMOL/L (3.5-5.1); SODIUM LEVEL 141 MMOL/L (136-145)
[2024-09-09 14:30] LABS: URIC ACID 6.1 MG/DL (3.7-9.2)
[2024-09-09 16:00] VITALS: BP 128/72; TEMP 98.8; O2SAT 97
[2024-09-09] MEDS: RIVAROXABAN 10MG TAB (XARELTO) PO SCH (18:10)
[2024-09-09] MEDS: traZODone 100 MG TAB PO SCH (20:42)
[2024-09-09] MEDS: TAMSULOSIN 0.4 MG CAP PO SCH (20:43)
[2024-09-09] MEDS: PANTOPRAZOLE 40MG TAB (PROTONIX) PO SCH (20:44)
[2024-09-09] MEDS: ASPIRIN 81MG ENTERIC TABLET PO SCH (20:45)
[2024-09-09] MEDS: PRAZOSIN 1 MG CAP PO SCH (20:46)
[2024-09-09] MEDS: DICLOFENAC EPOLAMINE 1.3% PATCH TOP SCH (20:48)
[2024-09-10 06:24] VITALS: BP 149/67; TEMP 97.8; O2SAT 97
[2024-09-10 08:35] VITALS: BP 122/76
[2024-09-10 15:49] VITALS: BP 180/78; TEMP 98.8; O2SAT 96
[2024-09-11 06:15] VITALS: BP 120/62; TEMP 97.5; O2SAT 96
[2024-09-11] MEDS ORDERED: ALBUTEROL SULFATE 2.5MG/0.5ML INH NEB SOLN NEB PRN (08:25)
[2024-09-11 08:28] VITALS: BP 143/86
[2024-09-11 16:54] VITALS: BP 150/84; TEMP 97.8; O2SAT 98
[2024-09-11] MEDS: PRAZOSIN 1 MG CAP PO SCH (21:00)
[2024-09-12 06:32] VITALS: BP 116/65; TEMP 97.4; O2SAT 94
[2024-09-12 08:57] VITALS: BP 134/88
[2024-09-12 15:32] VITALS: BP 141/91; TEMP 98.1; O2SAT 98
[2024-09-13 06:23] VITALS: BP 123/63; TEMP 97.6; O2SAT 98
[2024-09-13 08:22] VITALS: BP 148/96
[2024-09-13] MEDS ORDERED: BUPR15TASR PO (11:12)
[2024-09-13] MEDS ORDERED: METF500T13 PO (11:12)
[2024-09-13] MEDS ORDERED: FLOM0.4C39 PO (11:12)
[2024-09-13] MEDS ORDERED: DIOV80TA3 PO (11:12)
[2024-09-13] MEDS ORDERED: ASPI81TAEC PO (11:12)
[2024-09-13] MEDS ORDERED: PRAZ1CAP PO (11:12)
[2024-09-13] MEDS ORDERED: PANT40TA29 PO (11:12)
[2024-09-13] MEDS ORDERED: XARE10TA PO (11:12)
[2024-09-13] MEDS ORDERED: ADVA115A INH (11:12)
[2024-09-13] MEDS ORDERED: COLA100C5 PO (11:12)
[2024-09-13] MEDS ORDERED: TRAM50TA2 PO (11:12)
[2024-09-13] MEDS ORDERED: TRAZ-257 PO (11:12)
[2024-09-13] MEDS ORDERED: ALLO10TA PO (11:12)
== END 2024-09-13 12:03 | disposition home or self-care (01) | DRG 751 ==
LOC: M PSY 21:20
PROVIDERS: ADMIT Psychiatry & Neurology Psychiatry; ATTEND Psychiatry & Neurology Psychiatry
DX: F33.2 Major depressive disorder, recurrent severe without psychotic features (principal); I49.5 Sick sinus syndrome; E66.01 Morbid (severe) obesity due to excess calories; E11.9 Type 2 diabetes mellitus without complications; F10.10 Alcohol abuse, uncomplicated; I10 Essential (primary) hypertension; E78.5 Hyperlipidemia, unspecified; M25.561 Pain in right knee; M79.89 Other specified soft tissue disorders; J45.909 Unspecified asthma, uncomplicated; N40.0 Benign prostatic hyperplasia without lower urinary tract symptoms; M10.9 Gout, unspecified; F17.200 Nicotine dependence, unspecified, uncomplicated; F43.21 Adjustment disorder with depressed mood; Z68.41 Body mass index [BMI] 40.0-44.9, adult; Z91.51 Personal history of suicidal behavior; Z79.84 Long term (current) use of oral hypoglycemic drugs; Z79.82 Long term (current) use of aspirin; Z95.0 Presence of cardiac pacemaker; Z88.5 Allergy status to narcotic agent; Z79.1 Long term (current) use of non-steroidal anti-inflammatories (NSAID); Z79.899 Other long term (current) drug therapy

== ENCOUNTER → 2024-11-21 | Outpatient (REF) ==
[~2024-11-21] MED LIST changes: +ALLO10TA PO; +ASPI81TAEC PO; +BUPR15TASR PO; +DIOV80TA3 PO; +METF500T13 PO; +TRAM50TA2 PO; +XARE10TA PO
== END ==
LOC: M PLAIMG 11:09
PROVIDERS: ATTEND Internal Medicine
DX: R52 Pain, unspecified (principal)

== ENCOUNTER 2024-12-24 11:52 | Day surgery (SDC) | payer OTHER ==
[~2024-12-24] VITALS: Ht 182.9 cm; Wt 146.1 kg
[~2024-12-24 11:52] MED LIST changes: +BUPR150T12 PO; +HYDR-3363 PO; +UNRESOLVED CLARIFICATION ENTRY XX SCH
[2024-12-24] MEDS ORDERED: PRIM50TA6 PO (12:48)
[2024-12-24] MEDS ORDERED: ARIP1TAB4 PO (12:48)
[2024-12-24] MEDS ORDERED: ROCURONIUM BROMIDE 50MG/5ML VIAL As Ordered ONE (14:54)
[2024-12-24] MEDS ORDERED: propofoL 200 MG/20 ML VIAL As Ordered ONE (14:54)
[2024-12-24] MEDS ORDERED: LIDOCAINE 2% 100MG/5ML SDV (FOR ANES.) As Ordered ONE (14:54)
[2024-12-24] MEDS ORDERED: SUGAMMADEX SODIUM 500 MG/5 ML VIAL (BRIDION) As Ordered ONE (14:54)
[2024-12-24] MEDS ORDERED: ONDANSETRON 4MG 2ML VIAL As Ordered ONE (14:54)
[2024-12-24] MEDS ORDERED: MIDAZOLAM INJ 2MG/2ML VIAL As Ordered ONE (15:19)
[2024-12-24] MEDS ORDERED: fentaNYL 100 MCG/2 ML INJECTION As Ordered ONE (15:20)
[2024-12-24] MEDS: METHYLENE BLUE 0.5% (5MG/ML) 10 ML AMP (PROVAYBLUE) As Ordered ONE (16:23)
[2024-12-24] MEDS: EPINEPHrine 1MG/ML INJ 30ML MD-VIAL As Ordered ONE (16:24)
[2024-12-24] MEDS: LIDOCAINE W/EPINEPHRINE 1% 20ML VIAL As Ordered ONE (16:55)
[2024-12-24] MEDS: SODIUM CHLORIDE 0.9% NASAL GEL 15GM (AYR) As Ordered ONE (16:55)
[2024-12-24] MEDS: LR 1,000 ML IV SCH (17:00)
[2024-12-24] MEDS ORDERED: fentaNYL 100 MCG/2 ML INJECTION IV PRN (17:00)
[2024-12-24] MEDS: ONDANSETRON 4MG 2ML VIAL IV PRN (17:41)
[2024-12-24] MEDS: oxyCODONE 5MG TAB PO PRN (17:41)
[2024-12-24] MEDS: HYDROMORPHONE HCL 0.5 MG/ 0.5 ML SYRINGE IV PRN (17:41)
[2024-12-24] MEDS ORDERED: LR 1,000 ML IV SCH (18:25)
[2024-12-24] MEDS: AUGMENTIN 875 MG TAB PO ONE (18:46)
[2024-12-24 18:53] VITALS: BP 128/82; TEMP 97.5; O2SAT 97
== END 2024-12-24 18:56 | disposition home or self-care (01) ==
LOC: M SDC 11:52
PROVIDERS: ATTEND Otolaryngology
DX: J34.2 Deviated nasal septum (principal); J35.3 Hypertrophy of tonsils with hypertrophy of adenoids; J34.89 Other specified disorders of nose and nasal sinuses; R09.81 Nasal congestion; I49.5 Sick sinus syndrome; I25.10 Atherosclerotic heart disease of native coronary artery without angina pectoris; I10 Essential (primary) hypertension; I25.84 Coronary atherosclerosis due to calcified coronary lesion; E78.00 Pure hypercholesterolemia, unspecified; E74.39 Other disorders of intestinal carbohydrate absorption; G47.33 Obstructive sleep apnea (adult) (pediatric); M10.9 Gout, unspecified; Z95.0 Presence of cardiac pacemaker; Z79.899 Other long term (current) drug therapy; Z79.85 Long-term (current) use of injectable non-insulin antidiabetic drugs; Z79.82 Long term (current) use of aspirin; E66.9 Obesity, unspecified; F17.210 Nicotine dependence, cigarettes, uncomplicated; F41.9 Anxiety disorder, unspecified; F32.A Depression, unspecified; Z88.5 Allergy status to narcotic agent; Z88.8 Allergy status to other drugs, medicaments and biological substances
CPT/HCPCS: 30520; 30802; 88300; J0171; J1100; J1171; J2250; J2405; J3010; Q9968

== ENCOUNTER → 2025-01-07 | Outpatient (CLI) | payer OTHER ==
[~2025-01-07] MED LIST changes: +ARIP1TAB4 PO; -FLOM0.4C39 PO; +PRIM50TA6 PO; +TAMS-18 PO; -UNRESOLVED CLARIFICATION ENTRY XX SCH
[2025-01-07 16:05] LABS: THYROID STIMULATING HORMONE 1.807 uIU/ML (0.55-4.78)
[2025-01-07 16:11] LABS: FOLATE 9.3 NG/ML (>5.4)
== END ==
LOC: M PLAIMG 13:51
PROVIDERS: ATTEND Psychiatry & Neurology Neurology
DX: G25.0 Essential tremor (principal); R55 Syncope and collapse; R26.81 Unsteadiness on feet

== ENCOUNTER → 2025-01-07 | Outpatient (CLI) | payer OTHER ==
[2025-01-07 15:41] LABS: BASO # 0.1 10^3/uL (0.0-0.2); BASO % 0.9 % (0.0-1.0); EOS # 0.1 10^3/uL (0.0-0.5); EOS % 1.9 % (0.0-3.0); HEMATOCRIT 47.3 % (42.0-52.0); HEMOGLOBIN 15.7 g/dl (13.5-17.5); LYMPH # 1.7 10^3/uL (1.5-5.0); LYMPH % 25.7 % (24.0-44.0); MEAN CORPUSCULAR HEMOGLOBIN 29.5 pg (27.0-33.0); MEAN CORPUSCULAR HGB CONC 33.2 g/dl (32.0-36.5); MEAN CORPUSCULAR VOLUME 88.7 fl (80.0-96.0); MONO # 0.4 10^3/uL (0.0-0.8); MONO % 5.8 % (2.0-8.0); NEUTROPHILS # 4.4 10^3/uL (1.5-8.5); NEUTROPHILS % 65.3 % (36.0-66.0); PLATELET COUNT, AUTOMATED 165 10^3/uL (150-450); RED BLOOD COUNT 5.33 10^6/uL (4.30-6.10); WHITE BLOOD COUNT 6.7 10^3/uL (4.0-10.0)
[2025-01-07 15:49] LABS: ERYTHROCYTE SEDIMENTATION RATE 39 mm/hr (0-20)
[2025-01-07 16:04] LABS: ALBUMIN 3.8 G/DL (3.2-5.2); ALKALINE PHOSPHATASE 54 U/L (40-129); ALT/SGPT 71 U/L (7.0-40); AST/SGOT 48 U/L (<34); BILIRUBIN,TOTAL 1.2 MG/DL (0.3-1.2); BLOOD UREA NITROGEN 21 MG/DL (9-23); C REACTIVE PROTEIN QUANTITATIV < 0.50 MG/DL (<1.0); CALCIUM LEVEL 9.7 MG/DL (8.5-10.1); CARBON DIOXIDE LEVEL 27 MMOL/L (20-31); CHLORIDE LEVEL 100 MMOL/L (98-107); CPK CREATINE PHOSPHOKINASE 179 U/L (46-171); GLOMERULAR FILTRATION RATE 64.1 (>56); GLUCOSE, FASTING 109 MG/DL (60-100); MAGNESIUM LEVEL 1.9 MG/DL (1.8-2.4); POTASSIUM SERUM 4.4 MMOL/L (3.5-5.1); SODIUM LEVEL 136 MMOL/L (136-145); TOTAL PROTEIN 7.3 G/DL (5.7-8.2)
[2025-01-07 17:06] LABS: HEMOGLOBIN A1c 6.9 % (4.0-6.0)
== END ==
LOC: M PLALAB 13:54
PROVIDERS: ATTEND Physician Assistant Medical
DX: R53.83 Other fatigue (principal)

== ENCOUNTER → 2025-02-05 | Outpatient (CLI) | payer OTHER ==
[~2025-02-05] MED LIST changes: +BUSP10TA79 PO; +DOCU100C16 PO; +FLUT1BLS8; +LEXA5TAB13 PO; +PRAZ2CAP PO; +SEMA1PEN2
== END ==
LOC: M RAD 13:57
PROVIDERS: ATTEND Physician Assistant Medical
DX: N18.30 Chronic kidney disease, stage 3 unspecified (principal)

== ENCOUNTER → 2025-03-20 | Outpatient (CLI) | payer OTHER ==
[2025-03-20 18:53] LABS: CALCIUM LEVEL 9.8 MG/DL (8.5-10.1); CARBON DIOXIDE LEVEL 32.0 MMOL/L (20-31); CHLORIDE LEVEL 99.0 MMOL/L (98-107); CREATININE FOR GFR 1.42 MG/DL (0.70-1.30); GLOMERULAR FILTRATION RATE 57.6 (>56); POTASSIUM SERUM 4.3 MMOL/L (3.5-5.1); SODIUM LEVEL 140.0 MMOL/L (136-145)
[2025-03-20 18:55] LABS: PLATELET COUNT, AUTOMATED 141 10^3/uL (150-450)
== END ==
LOC: M PLALAB 14:00
PROVIDERS: ATTEND Physician Assistant
DX: Z01.818 Encounter for other preprocedural examination (principal)

== ENCOUNTER 2025-03-28 08:58 | Day surgery (SDC) | payer OTHER ==
[~2025-03-28] VITALS: Ht 182.9 cm; Wt 140.8 kg
[~2025-03-28 08:58] MED LIST changes: +ACETAMINOPHEN 1000MG/100ML IV BAG As Ordered ONE; +KETOROLAC 30 MG/ML 1 ML VIAL As Ordered ONE; +LIDOCAINE 2% 100 MG/5 ML SDV (FOR ANES.) As Ordered ONE; +MIDAZOLAM INJ 2 MG/2 ML VIAL As Ordered ONE; +ceFAZolin SOD 2 GM IV ONCE IV ONE
[2025-03-28] MEDS ORDERED: LR 1,000 ML IV SCH (09:45)
[2025-03-28] MEDS: ceFAZolin SOD 3 GM in DEXTROSE 5% (D5W) MINI-BAG PLU 1... IV ONE (11:01)
[2025-03-28 12:53] VITALS: BP 121/76; TEMP 97.6; O2SAT 97
== END 2025-03-28 12:56 | disposition home or self-care (01) ==
LOC: M SDC 08:58
PROVIDERS: ATTEND Urology
DX: N20.0 Calculus of kidney (principal); I12.9 Hypertensive chronic kidney disease with stage 1 through stage 4 chronic kidney disease, or unspecified chronic kidney disease; E11.22 Type 2 diabetes mellitus with diabetic chronic kidney disease; N18.30 Chronic kidney disease, stage 3 unspecified; I49.5 Sick sinus syndrome; E78.00 Pure hypercholesterolemia, unspecified; E11.40 Type 2 diabetes mellitus with diabetic neuropathy, unspecified; N40.0 Benign prostatic hyperplasia without lower urinary tract symptoms; M10.9 Gout, unspecified; F43.10 Post-traumatic stress disorder, unspecified; K21.9 Gastro-esophageal reflux disease without esophagitis; Z79.899 Other long term (current) drug therapy; Z79.85 Long-term (current) use of injectable non-insulin antidiabetic drugs; Z79.82 Long term (current) use of aspirin; Z95.0 Presence of cardiac pacemaker; F41.9 Anxiety disorder, unspecified; F32.A Depression, unspecified; Z88.5 Allergy status to narcotic agent; Z87.442 Personal history of urinary calculi

== ENCOUNTER → 2025-04-15 | Outpatient (CLI) | payer OTHER ==
[~2025-04-15] MED LIST changes: -ACETAMINOPHEN 1000MG/100ML IV BAG As Ordered ONE; -KETOROLAC 30 MG/ML 1 ML VIAL As Ordered ONE; -LIDOCAINE 2% 100 MG/5 ML SDV (FOR ANES.) As Ordered ONE; -MIDAZOLAM INJ 2 MG/2 ML VIAL As Ordered ONE; -ceFAZolin SOD 2 GM IV ONCE IV ONE
[2025-04-15 15:22] LABS: CALCIUM LEVEL 9.2 MG/DL (8.5-10.1); CARBON DIOXIDE LEVEL 28.0 MMOL/L (20-31); CHLORIDE LEVEL 99.0 MMOL/L (98-107); CREATININE FOR GFR 1.6 MG/DL (0.70-1.30); GLOMERULAR FILTRATION RATE 49.9 (>56); POTASSIUM SERUM 4.4 MMOL/L (3.5-5.1); SODIUM LEVEL 136.0 MMOL/L (136-145)
[2025-04-15 15:29] LABS: PLATELET COUNT, AUTOMATED 113 10^3/uL (150-450)
== END ==
LOC: M PLALAB 12:45
PROVIDERS: ATTEND Physician Assistant
DX: Z01.818 Encounter for other preprocedural examination (principal)

== ENCOUNTER → 2025-04-19 | Outpatient (REF) | payer OTHER | LOC: M SMT 16:42 | PROVIDERS: ATTEND Physician Assistant | DX: Z87.442 Personal history of urinary calculi (principal) ==

== ENCOUNTER → 2025-05-17 | Outpatient (CLI) | payer OTHER | LOC: M RAD 13:27 | PROVIDERS: ATTEND Physician Assistant Medical | DX: I65.29 Occlusion and stenosis of unspecified carotid artery (principal) ==

== ENCOUNTER → 2025-05-20 | Outpatient (CLI) | payer OTHER | LOC: M PLAIMG 12:42 | PROVIDERS: ATTEND Physician Assistant | DX: N20.0 Calculus of kidney (principal) ==

== ENCOUNTER → 2025-06-21 | Outpatient (REF) | payer OTHER | LOC: M SMT 13:02 | PROVIDERS: ATTEND Urology | DX: R97.20 Elevated prostate specific antigen [PSA] (principal) ==

== ENCOUNTER → 2025-07-22 | Outpatient (CLI) | payer OTHER | LOC: M SOG 07:38 | PROVIDERS: ATTEND Orthopaedic Surgery | DX: M25.531 Pain in right wrist (principal); M25.532 Pain in left wrist ==

== ENCOUNTER → 2025-07-31 | Outpatient (CLI) | payer MEDICARE, OTHER ==
[2025-07-31 17:43] LABS: ALT/SGPT 96.0 U/L (7.0-40); AST/SGOT 60.0 U/L (<34); CALCIUM LEVEL 9.1 MG/DL (8.5-10.1); CARBON DIOXIDE LEVEL 30.0 MMOL/L (20-31); CHLORIDE LEVEL 99.0 MMOL/L (98-107); CREATININE FOR GFR 1.26 MG/DL (0.70-1.30); GLOMERULAR FILTRATION RATE 66.5 (>56); POTASSIUM SERUM 4.0 MMOL/L (3.5-5.1); SODIUM LEVEL 139.0 MMOL/L (136-145)
[2025-07-31 17:47] LABS: BASO # 0.1 10^3/uL (0.0-0.2); BASO % 1.3 % (0.0-1.0); EOS # 0.1 10^3/uL (0.0-0.5); EOS % 1.9 % (0.0-3.0); LYMPH # 1.8 10^3/uL (1.5-5.0); LYMPH % 28.0 % (24.0-44.0); MONO # 0.5 10^3/uL (0.0-0.8); MONO % 7.2 % (2.0-8.0); NEUTROPHILS # 3.8 10^3/uL (1.5-8.5); NEUTROPHILS % 61.1 % (36.0-66.0); PLATELET COUNT, AUTOMATED 144 10^3/uL (150-450)
[2025-08-04 08:27] LABS: PHENOBARBITAL (PRIMIDONE) < 5.0 mg/L (15.0-40.0); PRIMIDONE, SERUM 5.8 mg/L (5.0-12.0)
== END ==
LOC: M PLALAB 15:10
PROVIDERS: ATTEND Psychiatry & Neurology Neurology
DX: R25.1 Tremor, unspecified (principal)

== ENCOUNTER → 2025-09-02 | Outpatient (CLI) | payer MEDICARE, OTHER | LOC: M PLALAB 14:40 | PROVIDERS: ATTEND Urology | DX: C61 Malignant neoplasm of prostate (principal) ==